=== PATIENT | female | born 1955 | race Caucasian/White ===

== ENCOUNTER 2024-05-07 21:23 | Emergency (ER) | payer MEDICARE, SELFPAY ==
[2024-05-07 21:28] VITALS: BP 156/90; PULSE 91; TEMP 36.7; O2SAT 99; BMI 24.0
--- NOTE | 2024-05-07 21:58 | ED.FALL1 ---
HPI HPI - Fall General Chief Complaint: Fall Stated Complaint: fall Time Seen by Provider: 05/07/24 21:25 Source: patient Mode of arrival: walk-in Limitations: no limitations History of Present Illness HPI Narrative: 69-year-old female presents emergency room chief complaint of left fall. Patient was dancing and fell on the outstretched wrist. Soft tissue swelling is noted. She states she injured week but did not have an x-ray she saw her primary care physician was feeling better. She states she reinjured it today when she fell. She is crying. Patient is intoxicated states she drank a lot of alcohol today. Patient has no other injury or trauma denies any elbow shoulder or forearm pain. Good capillary refill distal of the extremity. No previous fracture to this extremity. Related Data Home Medications ?Medication ?Instructions ?Recorded ?Confirmed calcium 500 mg tablet 500 mg PO BID 05/07/24 05/07/24 cholecalciferol (vitamin D3) 75 2,000 unit PO DAILY 05/07/24 05/07/24 mcg (3,000 unit) tablet fluoxetine 40 mg capsule (Prozac) 60 mg PO DAILY 05/07/24 05/07/24 ibandronate 150 mg tablet mg PO .monthly 05/07/24 lorazepam 0.5 mg tablet (Ativan) 0.5 mg PO Q8H PRN anxiety 05/07/24 05/07/24 losartan 50 mg tablet (Cozaar) 50 mg PO DAILY 05/07/24 05/07/24 pantoprazole 40 mg tablet,delayed 40 mg PO DAILY 05/07/24 05/07/24 release Allergies Allergy/AdvReac Type Severity Reaction Status Date / Time No Known Drug Allergies Allergy Verified 05/07/24 21:31 Opioid HPI Opioid Management Most Recent Pain and Opioid Data: No Data to Display Review of Systems ROS Narrative All Systems are negative except as noted/marked. PFSH PFSH Social History Little interest or pleasure in doing things: not at all Feeling down, depressed, or hopeless: not at all Exam Narrative Exam Narrative: Nurses note and vital signs reviewed and patient is not hypoxic. General: The patient appears well and in no apparent distress. Patient is resting comfortably on cart. Skin: Warm, dry, no pallor noted. There is no rash noted. Head: Normocephalic, atraumatic Eye: Normal conjunctiva, no drainage, EOMI. PERRL Ears, Nose, Mouth, and Throat: oral mucosa is moist. Nares patent. Mouth without vesicles. Ear canals patent. Tm's without Erythema Cardiovascular: Regular Rate and Rhythm Musculoskeletal: Left wrist, neurovascular intact with good capillary fill distally, no elbow or shoulder or forearm tenderness, remainder of extremities are unremarkable no acute injuries noted on exam other than listed Neurological: A&O x4, normal speech Psychiatric: Cooperative, intoxicated Constitutional Vital Signs, click to edit/add: Last Vital Signs Temp 98.1 F 05/07/24 21:28 Pulse 91 H 05/07/24 21:28 Resp 20 05/07/24 21:28 BP 156/90 H 05/07/24 21:28 Pulse Ox 99 05/07/24 21:28 O2 Del Method Room Air 05/07/24 21:28 Course Vital Signs Vital signs: Vital Signs Temperature 98.1 F 05/07/24 21:28 Pulse Rate 91 H 05/07/24 21:28 Respiratory Rate 20 05/07/24 21:28 Blood Pressure 156/90 H 05/07/24 21:28 Pulse Oximetry 99 05/07/24 21:28 Oxygen Delivery Method Room Air 05/07/24 21:28 Temperature 98.1 F 05/07/24 21:28 Pulse Rate 91 H 05/07/24 21:28 Respiratory Rate 20 05/07/24 21:28 Blood Pressure 156/90 H 05/07/24 21:28 Pulse Oximetry 99 05/07/24 21:28 Oxygen Delivery Method Room Air 05/07/24 21:28 MDM - Fall MDM Narrative Medical decision making narrative: 69-year-old female presents emergency room chief complaint of left fall. Patient was dancing and fell on the outstretched wrist. Soft tissue swelling is noted. She states she injured week but did not have an x-ray she saw her primary care physician was feeling better. She states she reinjured it today when she fell. She is crying. Patient is intoxicated states she drank a lot of alcohol today. Patient has no other injury or trauma denies any elbow shoulder or forearm pain. Good capillary refill distal of the extremity. No previous fracture to this extremity. Here with chief complaint of left wrist injury x-ray shows a distal ulna fracture. Patient was placed in a volar splint by myself extremity neurovascular intact before and after application. Sling was then applied. Patient been drinking alcohol states she had a lot to drink tonight. She denies passing out or any head or neck pain at this time. She will be discharged home prescription [place] medicate here with Tylenol. She will follow-up with Dr. singh office at 1130 on Thursday. Daughter at bedside agrees with plan of care Differential Diagnosis Differential diagnosis: Likely fracture of wrist Medical Records Attestation: I reviewed the patient's medical records. Discharge Plan Discharge Chief Complaint: Fall Clinical Impression: Fracture of wrist Patient Disposition: Home, Self-Care Time of Disposition Decision: 22:03 Condition: Good Prescriptions / Home Meds: No Action fluoxetine [Prozac] 40 mg capsule 60 mg PO DAILY lorazepam [Ativan] 0.5 mg tablet 0.5 mg PO Q8H PRN (Reason: anxiety) losartan [Cozaar] 50 mg tablet 50 mg PO DAILY pantoprazole 40 mg tablet,delayed release (DR/EC) 40 mg PO DAILY ibandronate 150 mg tablet PO .monthly calcium 500 mg tablet 500 mg PO BID cholecalciferol (vitamin D3) 75 mcg (3,000 unit) tablet 2,000 unit PO DAILY Print Language: Uzbek Instructions: Wrist Fracture in Adults (ED) Referrals: Physician,Non-Staff, [Primary Care Provider] - 1 week Mitchell Singh MD [Physician] - 05/09/24 11:30 am
[2024-05-07] MEDS: ACETAMINOPHEN 500 MG TABLET 1000 MG PO (22:12)
[2024-05-07] MEDS: ONDANSETRON 4 MG RAPDIS TABLET SL (22:12)
== END 2024-05-07 22:54 | disposition home or self-care (01) ==
PROVIDERS: Emergency Provider Student in an Organized Health Care Education/Training Program; Family Provider Internal Medicine
DX: S52.612A Displaced fracture of left ulna styloid process, initial encounter for closed fracture (principal); W18.39XA Other fall on same level, initial encounter; Y93.41 Activity, dancing; F10.129 Alcohol abuse with intoxication, unspecified
CPT/HCPCS: 29125; 73110; 99283; Q0162

== ENCOUNTER 2024-05-16 12:56 | Outpatient (OUT) | payer MEDICARE, SELFPAY ==
--- NOTE | 2024-05-16 | XR_ITS ---
The [address] [address] Patient Name: ROBERT DEGROOT MRN: [id number] date: 1955 Sex: F Assigned Patient Location: Current Patient Location: Accession/Order Number: [id number] Exam Date: 05/16/2024 16:52 Report Date: 05/16/2024 16:53 At the request of: PETER DEL RIO MD Procedure: XR wrist LT min 3V LEFT WRIST - 3 views CLINICAL HISTORY: Left wrist pain after fall. COMPARISON: Left wrist 05/07/2024 FINDINGS: Cast material is in place limiting bony detail. Styloid process fracture of the ulna is grossly unchanged alignment and healing. Distal radius appears intact. Carpus appears grossly unchanged. XR/XR wrist LT min 3V IMPRESSION: NO SIGNIFICANT CHANGE IN WRIST FINDINGS COMPARED TO THE PRIOR STUDY. Impression dictated by: Caio Graves Jr., DSolisOSolis05/16/2024 4:53 PM Dictation Location: [place] [address] Electronically authenticated by: [id number] Y Date: 05/16/2024 16:53
== END 2024-05-16 12:57 | disposition home or self-care (01) ==
LOC: EC 12:57
PROVIDERS: Family Provider Internal Medicine; Visit Provider Orthopaedic Surgery
DX: S52.592D Other fractures of lower end of left radius, subsequent encounter for closed fracture with routine healing (principal); S52.615D Nondisplaced fracture of left ulna styloid process, subsequent encounter for closed fracture with routine healing
CPT/HCPCS: 73110

== ENCOUNTER 2024-05-23 09:30 | Outpatient (OUT) | payer MEDICARE, SELFPAY ==
--- NOTE | 2024-05-23 | XR_ITS ---
The [address] [address] Patient Name: ROBERT DEGROOT MRN: [id number] date: 1955 Sex: F Assigned Patient Location: Current Patient Location: Accession/Order Number: [id number] Exam Date: 05/23/2024 13:06 Report Date: 05/23/2024 13:11 At the request of: PETER DEL RIO MD Procedure: XR wrist LT min 3V LEFT WRIST - 3 views CLINICAL DATA: Wrist pain. Follow-up ulnar styloid fractures. COMPARISON: 05/16/2024 AP, lateral and oblique views were obtained in a cast that obscures fine bone detail. A mildly displaced fracture at the ulnar styloid is again visualized, similar in position. On the lateral view, there is suggestion of possible developing callus formation dorsally. It is uncertain if this is related to the ulnar styloid or could be a healing fracture at the distal radius given the cast artifact. The appearance is however unchanged. No dislocation is noted. There is mild soft tissue swelling. XR/XR wrist LT min 3V IMPRESSION: STABLE APPEARANCE OF THE WRIST. Impression dictated by: Jacqueline Diego M.D.05/23/2024 1:11 PM Dictation Location: [place] [address] Electronically authenticated by: [id number] Y Date: 05/23/2024 13:11
--- OUTSIDE RECORDS SUMMARY | 2024-05-23 09:52 | XMS_ITS | CCD ---
Author Organization [facility] Care Team Providers Care Sheather Name Role Phone Rae Wilson Unavailable Unavailable *SELF, REFERRED Unavailable Unavailable Addie Bruner Unavailable UnavailRae Navarro Unavailable Unavailable Addie Bruner Unavailable UnavailAddie Piedra DO Primary Care Provider Addie Bruner DO Primary Care Provider [phone] ADDIE BRUNER Attending Unavailable ADDIE BRUNER Attending Unavailable ADDIE BRUNER Referring Unavailable LAUREN PAZ Attending Unavailable DEBBY CARREON Attending Unavailable LAUREN PAZ Attending Unavailable LAUREN PAZ Attending Unavailable MILADIS PAZ Referring Unavailable MILADIS PAZ Attending Unavailable MILADIS PAZ Referring Unavailable ADDIE BRUNER Referring Unavailable ADDIE BRUNER Attending Unavailable ADDIE BRUNER Referring Unavailable WILBERTO QUINTERO Attending Unavailable Allergies Allergy Classification Reported Allergen(s) Allergy Type Date of Onset Reaction(s) Facility (11 sources) Ibandronate Drug Allergy 3 GI intolerance [facility] Healthcare (11 sources) Other Propensity to adverse reactions 7 Itching [facility] Medications Current Medications Medication Drug Class(es) Dates Sig (Normalized) Sig (Original) FLUoxetine 20 mg oral capsule (20 sources) Serotonin Reuptake Inhibitor Start: 08-21-2023 take 1 capsule by mouth once daily FLUoxetine (PROzac) 20 MG capsule Indications: Major depressive disorder, recurrent episode with anxious distress (CMS/HCC) TAKE 1 CAPSULE BY MOUTH DAILY 90 capsule 3 08/21/2023 Active Start: 08-21-2023 take 1 capsule by [facility] once daily FLUoxetine (PROzac) 40 MG capsule Indications: Major depressive disorder, recurrent episode with anxious distress (CMS/HCC) TAKE 1 CAPSULE BY MOUTH DAILY WITH 20MG CAPSULE 90 capsule 3 08/21/2023 Active Start: 11-06-2022 take 1 capsule by mo uth once daily FLUoxetine (PROzac) 40 MG capsule Indications: Major depressive disorder, recurrent episode with anxious distress (CMS/HCC) TAKE ONE CAPSULE BY MOUTH DAILY WITH 20MG CAPSULE TO EQUAL 60MG DIRECTED 90 capsule 3 11/06/2022 Active Start: 02-17-2020 take 1 capsule by mo uth once daily FLUoxetine (PROzac) 20 MG capsule Take 1 capsule by mouth 1 (one) time each day at the same time. 0 02/17/2020 Active ibuprofen 800 mg oral tablet (11 sources) Nonsteroidal Anti-inflammatory Drug Start: 01-21-2024 take 1 tablet by mouth three times daily as needed for pain ibuprofen 800 MG tablet Indications: Other chronic pain Take 1 tablet (800 mg) by mouth 3 (three) times a day as needed for moderate pain 270 tablet 3 01/21/2024 Active Start: 08-04-2023 take 1 tablet by corby th three times daily as needed ibuprofen 800 MG tablet Indications: Other chronic pain TAKE 1 TABLET BY MOUTH 3 TIMES DAILY NEEDED 270 tablet 3 08/04/2023 Active take 1 tablet by corby th three times daily as needed for pain ibuprofen 800 MG tablet Take 1 tablet by mouth 3 (three) times a day as needed for mild pain. 0 Active LORazepam 0.5 mg oral tablet (16 sources) Benzodiazepine Start: 02-25-2024 End: 04-08-2024 take 1 tablet by mouth three times daily as needed LORazepam (Ativan) 0.5 MG tablet Indications: Anxiety TAKE ONE TABLET BY MOUTH THREE TIMES A DAY NEEDED 90 tablet 04/08/2024 Active Start: 12-04-2023 take 1 tablet by corby th three times daily as needed LORazepam (Ativan) 0.5 MG tablet Indications: Anxiety TAKE ONE TABLET BY MOUTH THREE TIMES A DAY NEEDED 90 tablet 12/04/2023 Active Start: 10-21-2023 End: 02-25-2024 take 1 tablet by mouth three times daily as needed LORazepam (Ativan) 0.5 MG tablet Indications: Anxiety TAKE ONE TABLET BY MOUTH THREE TIMES A DAY NEEDED 90 tablet 01/19/2024 02/25/2024 Discontinued (Reorder) Start: 04-28-2023 take 1 tablet by corby th three times daily as needed LORazepam (Ativan) 0.5 MG tablet Indications: Anxiety TAKE ONE TABLET BY MOUTH THREE TIMES A DAY NEEDED 90 tablet 0 04/28/2023 Active Start: 03-18-2023 End: 04-28-2023 take 1 tablet by mouth three times daily as needed LORazepam (Ativan) 0.5 MG tablet Indications: Anxiety TAKE ONE TABLET BY MOUTH THREE TIMES A DAY NEEDED 90 tablet 0 03/18/2023 04/28/2023 Discontinued (Reorder) losartan potassium 50 mg oral tablet (10 sources) Angiotensin 2 Receptor [facility] Start: 01-21-2024 take 1 tablet by mouth once daily in the morning losartan (Cozaar) 50 MG tablet Indications: Primary hypertension (CMS/HCC) Take 1 tablet (50 mg) by mouth Daily in the Morning 90 tablet 3 01/21/2024 Active Start: 09-21-2023 take 1 tablet by corby th once daily in the morning losartan (Cozaar) 50 MG tablet Indications: Primary hypertension (CMS/HCC) Take 1 tablet (50 mg) by mouth Daily in the Morning 90 tablet 1 09/21/2023 Active pantoprazole 40 mg delayed release oral tablet (13 sources) Proton Pump Inhibitor Start: 10-21-2023 End: 03-31-2024 take 1 tablet by mouth once daily pantoprazole (ProtoNix) 40 MG EC tablet Indications: Gastroesophageal reflux disease without esophagitis Take 1 tablet (40 mg) by mouth 1 (one) time each day at the same time 90 tablet 1 03/31/2024 Active take 1 tablet by mouth once reji y pantoprazole (ProtoNix) 40 MG EC tablet Take 1 tablet by mouth 1 (one) time each day at the same time. 0 Active Problems Active Problems Problem Classification Problem Date Documented Da te Episodic/Chronic Administrative/social admission (20 sources) Patient encounter status; Translations: [Other specified counseling] Onset: 3 Resolved: 4 12-15-2022 Episodic Anxiety disorders (17 sources) Anxiety; Translations: [Anxiety disorder, unspecified] Onset: 4 04-28-2023 Chronic Disorders of lipid metabolism (12 sources) Raised low density lipoprotein cholesterol; Translations: [Pure hypercholesterolemia, unspecified] Onset: 4 10-21-2023 Chronic Esophageal disorders (20 sources) Gastroesophageal reflux disease without esophagitis; Translations: [Gastro-esophageal reflux disease without esophagitis] Onset: 3 Resolved: 3 12-15-2022 Chronic Essential hypertension (12 sources) Essential hypertension; Translations: [Essential (primary) hypertension] Onset: 4 06-16-2023 Chronic Miscellaneous mental health disorders (2 sources) Primary insomnia; Translations: [Primary insomnia] 04-27-2024 Chronic Mood disorders (13 sources) Recurrent major depression; Translations: [Major depressive disorder, recurrent, unspecified] Onset: 3 07-28-2022 Chronic Other bone disease and musculoskeletal deformities (4 sources) Osteopenia; Translations: [Other specified disorders of bone density and structure, multiple sites] Onset: 5 04-27-2024 Episodic Other ear and sense organ disorders (2 sources) Otalgia, left ear; Translations: [Otalgia, unspecified] 03-31-2024 Episodic Other gastrointestinal disorders (11 sources) Irritable bowel syndrome; Translations: [Irritable bowel syndrome without diarrhea] Onset: 3 07-28-2022 Chronic Other gastrointestinal disorders (2 sources) Irritable bowel syndrome characterized by constipation; Translations: [Irritable bowel syndrome with constipation] 04-27-2024 Chronic Other nervous system disorders (11 sources) Chronic pain; Translations: [Other chronic pain] Onset: 3 08-08-2022 Chronic Other non-traumatic joint disorders (3 sources) Pain in unspecified ankle and joints of unspecified foot; Translations: [Pain in unspecified ankle] Onset: 8 Episodic Other non-traumatic joint disorders (1 source) Pain in unspecified knee; Translations: [Pain in unspecified knee] Onset: 8 Episodic Other upper respiratory disease (11 sources) Seasonal allergy; Translations: [Other seasonal allergic rhinitis] Onset: 3 08-08-2022 Chronic Superficial injury; contusion (2 sources) Contusion of scalp; Translations: [Contusion of scalp, initial encounter] 03-31-2024 Episodic Past or Other Problems Problem Classification Problem Date Documented Da te Episodic/Chronic Osteoporosis (11 sources) Osteoporosis; Translations: [Age-related osteoporosis without current pathological fracture] Onset: 07-28-2022 Resolved: 10-21-2023 07-28-2022 Chronic Other bone disease and musculoskeletal deformities (10 sources) Acquired absence of other right toe(s); Translations: [Other toe(s) amputation status] Onset: 07-28-2022 Resolved: 07-28-2022 07-28-2022 Episodic Residual codes; unclassified (11 sources) Insomnia; Translations: [Insomnia, unspecified] Onset: 07-28-2022 07-28-2022 Episodic Results Test Name Value Interpretation Reference Range Facility CBC W Auto Differential pane l (Bld)on 04-26-2024 Basophils (Bld) [#/Vol] 0 10*3/uL [facility] Basophils/100 WBC (Bld) 0 % Not Estab. [facility] Eosinophils (Bld) [#/Vol] 0.1 10*3/uL [facility] Eosinophils/100 WBC (Bld) 2 % Not Estab. [facility] Erythrocyte distribution width (RBC) [Ratio] 12.3 % 11.7 - 15.4 % [facility] Hematocrit (Bld) [Volume fraction] 40.2 % 34.0 - 46.6 % [facility] Hemoglobin (Bld) [Mass/Vol] 13 g/dL 11.1 - 15.9 g/dL [facility] Immature granulocytes (Bld) [#/Vol] 0 10*3/uL [facility] Immature granulocytes/100 WBC (Bld) 0 % Not Estab. [facility] Lymphocytes (Bld) [#/Vol] 1.7 10*3/uL [facility] Lymphocytes/100 WBC (Bld) 32 % Not Estab. [facility] MCH (RBC) [Entitic mass] 30.3 pg 26.6 - 33.0 pg [facility] MCHC (RBC) [Mass/Vol] 32.3 g/dL 31.5 - 35.7 g/dL [facility] MCV (RBC) [Entitic vol] 94 fL 79 - 97 fL [facility] Monocytes (Bld) [#/Vol] 0.5 10*3/uL [facility] Monocytes/100 WBC (Bld) 10 % Not Estab. [facility] Neutrophils (Bld) [#/Vol] 2.9 10*3/uL [facility] Neutrophils/100 WBC (Bld) 56 % Not Estab. [facility] Platelets (Bld) [#/Vol] 307 10*3/uL [facility] RBC (Bld) [#/Vol] 4.29 10*6/uL [facility] WBC (Bld) [#/Vol] 5.2 10*3/uL [facility] Comprehensive metabolic pane herson 04-26-2024 Albumin [Mass/Vol] 4.3 g/dL 3.9 - 4.9 g/dL [facility] ALP [Catalytic activity/Vol] 48 U/L [facility] ALT [Catalytic activity/Vol] 17 U/L [facility] AST [Catalytic activity/Vol] 19 U/L [facility] Bilirubin [Mass/Vol] 0.5 mg/dL 0.0 - 1.2 mg/dL [facility] Calcium [Mass/Vol] 9.3 mg/dL 8.7 - 10.3 mg/dL [facility] Chloride [Moles/Vol] 106 mmol/L 96 - 106 mmol/L [facility] CO2 [Moles/Vol] 24 mmol/L 20 - 29 mmol/L [facility] Creatinine [Mass/Vol] 0.83 mg/dL 0.57 - 1.00 mg/dL [facility] GFR/1.73 sq M.predicted among non-blacks MDRD (S/P/Bld) [Vol rate/Area] 76 mL/min/{1.73_m2} 59 - PINF mL/min/1.73 [facility] Globulin (S) [Mass/Vol] 2.5 g/dL 1.5 - 4.5 g/dL [facility] Glucose [Mass/Vol] 88 mg/dL 70 - 99 mg/dL [facility] Potassium [Moles/Vol] 4.2 mmol/L 3.5 - 5.2 mmol/L [facility] Protein [Mass/Vol] 6.8 g/dL 6.0 - 8.5 g/dL [facility] Sodium [Moles/Vol] 143 mmol/L 134 - 144 mmol/L [facility] Urea nitrogen [Mass/Vol] 16 mg/dL 8 - 27 mg/dL [facility] Urea nitrogen/Creatini ne [Mass ratio] 19 mg/mg 12 - 28 [facility] Lipid 1996 panelon Cholesterol [Mass/Vol] 209 mg/dL High 100 - 199 mg/dL [facility] Cholesterol in HDL [Mass/Vol] 83 mg/dL 39 - PINF mg/dL [facility] Cholesterol in LDL [Mass/Vol] 110 mg/dL High 0 - 99 mg/dL [facility] Cholesterol in VLDL [Mass/Vol] 16 mg/dL 5 - 40 mg/dL [facility] Interpretation and review of laboratory results Abnormal [facility] Triglyceride [Mass/Vol] 89 mg/dL 0 - 149 mg/dL [facility] No Panel Informationon 04-26 Performed at: 01 - [address] [id number] [employer]cher: Daniel Denise PhD, Phone: [phone] [facility] Specimen Status Reporton Clindamycin Disk diffusion (KB) [[facility]] Comment [facility] Comment on above: Ambig Abbrev CMP14 D efault Ambdb Abbrev CMP14 Default A hand-written panel/profile was received from your office. In accordance with the [employer] Ambiguous Test Code Policy dated September 2002, we have completed your order by using the closest currently or formerly recognized AMA panel. We have assigned Comprehensive Metabolic Panel (14), Test Code #736008 to this request. If this is not the testing you wished to receive on this specimen, please contact the [employer] Client Inquiry/Technical Services Department to clarify the test order. We appreciate your business. Ambig Abbrev LP Default Ambig Abbrev LP Default A hand-written panel/profile was received from your office. In accordance with the [employer] Ambiguous Test Code Policy dated September 2002, we have completed your order by using the closest currently or formerly recognized AMA panel. We have assigned Lipid Panel, Test Code #788516 to this request. If this is not the testing you wished to receive on this specimen, please contact the [employer] Client Inquiry/Technical Services Department to clarify the test order. We appreciate your business. TSHon 04-26-2024 TSH Qn 1.54 m[IU]/L [facility] BI MAMMOGRAM SCREENING TOMOS YNTHESIS BILATERALon 09-02-2023 BI MAMMOGRAM SCREENING TOMOSYNTHESIS BILATERAL This is a summary report. The complete report is available in the patient's medical record. If you cannot access the medical record, please contact the sending organization for a detailed fax or copy. EXAMINATION: BI MAMMOGRAM SCREENING TOMOSYNTHESIS BILATERAL CLINICAL HISTORY:Screening COMPARISON: May 06, 2022. RESULT: Density: Scattered fibroglandular density [2] Overall appearance is stable. Typically benign calcifications. There is no suspicious mass, asymmetry, architectural distortion, or calcification IMPRESSION: BIRADS 2 - Benign Follow-up: Routine Screening Mamm Board Certified Radiologists. Accredited by the ACR and FDA. MAMMOGRAPHY IS VERY IMPORTANT TO YOUR HEALTH. THE [employer] GUIDELINES RECOMMEND THAT WOMEN 40 YEARS OF AGE AND OLDER SHOULD HAVE A MAMMOGRAM EVERY YEAR. A REMINDER LETTER WILL BE SENT AT THE APPROPRIATE TIME. THIS FACILITY UTILIZES A REMINDER SYSTEM TO ENSURE ALL PATIENTS RECEIVE REMINDER NOTIFICATIONS AT THE APPROPRIATE TIME BASED ON THE RECOMMENDATIONS OF THIS EXAM. THIS INCLUDES REMINDERS FOR ROUTINE SCREENING MAMMOGRAMS, DIAGNOSTIC MAMMOGRAMS IN WHICH THE PATIENT IS ASKED TO RETURN FOR ADDITIONAL VIEWS, OR OTHER BREAST IMAGING INTERVENTIONS WHEN APPROPRIATE. THE PATIENT WILL BE PLACED IN THE APPROPRIATE REMINDER SYSTEM INCLUDING A REMINDER AT THE APPROPRIATE TIME FOR ANY PENDING ADDITIONAL VIEWS. TRANSCRIBED BY: ELECTRONICALLY SIGNED BY: Caio Waters MD Normal Not Available DEXA BONE DENSITYon 06-16-19 24 DEXA BONE DENSITY Correlation is made with the previous DEXA examination of May 06, 2022. FINDINGS: Dual Femur bone density obtained with a [employer] whole body system: Region BMD Young-Adult Age-Matched Total (g/cm2) (%) T-Score (%) Z-Score Mean 0.599 71 -2.3 92 -0.5 IMPRESSION: Impression: The mean BMD and corresponding T-score indicated above indicate Low Bone Mass (Osteopenia, borderline osteoporosis) and places the patient at a mild to moderate increased risk for fracture. There may be a future risk of developing osteoporosis. Compared to the prior exam, -2.6% change is seen. FINDINGS: AP Spine bone density obtained with a [employer] whole body system: Region BMD Young-Adult Age-Matched Total (g/cm2) (%) T-Score (%) Z-Score L1-L4 0.801 76 -2.2 98 -0.2 Impression: The mean BMD and corresponding T-score indicated above indicate Low Bone Mass (Osteopenia) and places the patient at a mild to moderate increased risk for fracture. There may be a future risk of developing osteoporosis. Compared to the prior exam, +0.2% change is seen. Comment: The T-score is the primary focus of the interpretation of a patient?s bone mineral density measurement. The T-score is the number of standard deviations an individual is above or below the mean value for a young female having normal bone mass. The WHO defines osteoporosis based on the T-score value? +1.0 to ?0.9: Normal bone mass -1.0 to -2.5: Osteopenia and thus may be at future risk of fracture -2.6 to ?5: Osteoporosis and ?at significantly increased risk of fracture? TRANSCRIBED BY: ELECTRONICALLY SIGNED BY: Caio Waters MD Normal Not Available SCREENING MAMMOGRAM W/EUSEBIO, BILATERAL*on 05-06-2022 SCREENING MAMMOGRAM W/EUSEBIO, BILATERAL* CLINICAL HISTORY: Screening Mammogram COMPARISON: 06/20/2020, 06/09/2018, and 05/28/2016. TECHNIQUE: 2D and 3D Tomosynthesis of the right and left breasts was performed. FINDINGS: DENSITY: Heterogeneously dense. There are no suspicious masses, areas of suspicious microcalcifications or areas of architectural distortion identified. No evidence of skin thickening. IMPRESSION: BIRADS 1 : NEGATIVE, NORMAL INTERVAL FOLLOW UP. Board certified radiologist. Accredited by the ACR and FDA. MAMMOGRAPHY IS VERY IMPORTANT TO YOUR HEALTH. CURRENT [employer] AND [employer]WORK GUIDELINES RECOMMENDS ANNUAL MAMMOGRAPHY BEGINNING AT AGE 40. THIS FACILITY USUALLY USES A REMINDER SYSTEM TO ENSURE ALL POSITIONS RECEIVED REMINDER NOTIFICATIONS AT THE TIME BASED ON THE RECOMMENDATIONS OF THIS EXAM. Report reported and signed by Mitchell Walton on 05/07/2022 1350 Normal [facility] COVID-19 [facility] 10-28-20 21 SARS-CoV-2 (COVID-19) RNA JARET+probe Ql (Unsp spec) Detected Critically abnormal Not Detected [facility] Comment on above: Order Comment: Reaso n for Exam Exposure to COVID-19 virus Healthcare Worker?: N Result Comment: Mackenzie ents who have a positive COVID-19 test result may now have treatment options. Treatment options are available for patients with mild to moderate symptoms and for hospitalized patients. Visit our website at [email or web address] for resources and information. This nucleic acid amplification test was developed and its performance characteristics determined by [employer]. Nucleic acid amplification tests include RT- PCR and TMA. This test has not been FDA cleared or approved. This test has been authorized by FDA under an Emergency Use Authorization (EUA). This test is only authorized for the duration of time the declaration that circumstances exist justifying the authorization of the emergency use of in vitro diagnostic tests for detection of SARS-CoV-2 virus and/or diagnosis of COVID-19 infection under section 564(b)(1) of the Act, 21 U.S.C. 360bbb-3(b) (1), unless the authorization is terminated or revoked sooner. When diagnostic testing is negative, the possibility of a false negative result should be considered in the context of a patient's recent exposures and the presence of clinical signs and symptoms consistent with COVID-19. An individual without symptoms of COVID-19 and who is not shedding SARS-CoV-2 virus would expect to have a negative (not detected) result in this assay. PERFORMED BY: [place] [address] PATHOLOGIST [employer] TERRIE TROTTER M.D. Performed By: #### C BC, PTT, CMP, PT, LIPASE, TROP, BNP #### [address] STR cardiac stress/regularon 07-11-2020 STR cardiac stress/regular [facility] Main [place] [address] [place] [address] Cardiac Stress Test Signed Patient: Zoe Degroot MR#: [id number] : 1955 Acct:[id number] Age/Sex: 65 / F ADM Date: 07/10/20 Loc: Room: Type: [facility] Attending Dr: Lokesh Chang MD Ordering Provider: Lokesh Chang MD Date of Service: 07/10/20 STR/STR cardiac stress/regular: chest pain Copies to: Lokesh Chang MD REASON FOR STUDY: Chest pain. PROCEDURE: The patient underwent graded exercise stress test with the Singh protocol. The patient was able to exercise for 8 minutes 50 seconds, achieving workload of 10.1 METS. Maximum heart rate was 133 beats per minute, corresponding to 86% of maximum predicted heart rate. Maximum blood pressure was 168/70. No chest pain was reported. Blood pressure and heart response to exercise was physiologic. Baseline ECG showed normal sinus rhythm with no ST-T changes. Following exercise, no diagnostic changes or arrhythmia were seen. CONCLUSION: 1. Graded exercise stress test without diagnostic ST-T changes for ischemia. 2. No provoked chest pain or arrhythmia. 3. Appropriate hemodynamic response to exercise. 4. Good exercise tolerance. 5. Normal heart recovery phase. 6. This is a clinically negative study. Transcribed By: LISA 07/11/20 1116 Dictated By: Lokesh Chang MD 07/11/20 1109 Signed By: 07/12/[address] [facility] Basic Metabolic Panelon 04-0 Calcium [Mass/Vol] 8.4 mg/dL Normal 8.2-10.2 [facility] Comment on above: Performed By: #### C BC, PTT, CMP, PT, LIPASE, TROP, BNP #### [facility] [address] Chloride [Moles/Vol] 104 mmol/L Normal 95-114 [facility] Comment on above: Performed By: #### C BC, PTT, CMP, PT, LIPASE, TROP, BNP #### [facility] [address] CO2 [Moles/Vol] 24.6 mmol/L Normal 22.0-30.0 [facility] Comment on above: Performed By: #### C BC, PTT, CMP, PT, LIPASE, TROP, BNP #### [facility] [address] [place] [address] [place] Creatinine [Mass/Vol] 0.61 mg/dL Normal 0.44-1.03 [facility] Comment on above: Performed By: #### C BC, PTT, CMP, PT, LIPASE, TROP, BNP #### [facility] [address] [place] [address] [place] Creatinine Clr Calc Pharmacy 64.63 [facility] Comment on above: Result Comment: PERF ORMED BY: [place] [address] PATHOLOGIST [employer] TERRIE TROTTER M.D. Performed By: #### C BC, PTT, CMP, PT, LIPASE, TROP, BNP #### [address] Estimated GFR ( Odilia > 60 Normal [facility] Comment on above: Result Comment: GFR estimated reference range: According to KDOQI guidelines, <60 ml/min/1.73m2 is sufficient to diagnose a patient with chronic kidney disease. Performed By: #### C BC, PTT, CMP, PT, LIPASE, TROP, BNP #### [address] Estimated GFR (Non- Am > 60 Normal [facility] Comment on above: Performed By: #### C BC, PTT, CMP, PT, LIPASE, TROP, BNP #### [address] Glucose [Mass/Vol] 174 mg/dL High 70-100 [facility] Comment on above: Result Comment: [place] Glucose Reference Range is dependent on time and content of last meal. Glucose of more than 200 mg/dL in a nonstressed, ambulatory subject supports the diagnosis of Diabetes Mellitus. ADA recommended reference range Performed By: #### C BC, PTT, CMP, PT, LIPASE, TROP, BNP #### [address] Potassium [Moles/Vol] 3.3 mmol/L Low 3.5-5.1 [facility] Comment on above: Performed By: #### C BC, PTT, CMP, PT, LIPASE, TROP, BNP #### [address] Sodium [Moles/Vol] 137 mmol/L Normal 136-146 [facility] Comment on above: Performed By: #### C BC, PTT, CMP, PT, LIPASE, TROP, BNP #### [address] Urea nitrogen [Mass/Vol] 6 mg/dL Low 9-23 [facility] Comment on above: Performed By: #### C BC, PTT, CMP, PT, LIPASE, TROP, BNP #### [address] Complete Blood Count Auto Di ffon 06-17-2020 Basophils (Bld) [#/Vol] 0.0 10*3/uL Normal 0.0-0.2 [facility] Comment on above: Result Comment: PERF ORMED BY: [place] [address] PATHOLOGIST [employer] TERRIE TROTTER M.D. Performed By: #### C BC, PTT, CMP, PT, LIPASE, TROP, BNP #### [address] Basophils/100 WBC (Bld) 0.4 % Normal . [facility] Comment on above: Performed By: #### C BC, PTT, CMP, PT, LIPASE, TROP, BNP #### [address] Eosinophils (Bld) [#/Vol] 0.1 10*3/uL Normal 0.0-0.45 [facility] Comment on above: Performed By: #### C BC, PTT, CMP, PT, LIPASE, TROP, BNP #### [address] Eosinophils/100 WBC (Bld) 1.1 % Normal . [facility] Comment on above: Performed By: #### C BC, PTT, CMP, PT, LIPASE, TROP, BNP #### [address] Erythrocyte distribution width (RBC) [Ratio] 13.2 % Normal 11.9-15.3 [facility] Comment on above: Performed By: #### C BC, PTT, CMP, PT, LIPASE, TROP, BNP #### [address] Hematocrit (Bld) [Volume fraction] 38.4 % Normal 34.0-46.4 [facility] Comment on above: Performed By: #### C BC, PTT, CMP, PT, LIPASE, TROP, BNP #### [address] Hemoglobin (Bld) [Mass/Vol] 13.0 g/dL Normal 11.8-15.4 [facility] Comment on above: Performed By: #### C BC, PTT, CMP, PT, LIPASE, TROP, BNP #### [address] Lymphocytes (Bld) [#/Vol] 1.0 10*3/uL Normal 1.00-4.8 [facility] Comment on above: Performed By: #### C BC, PTT, CMP, PT, LIPASE, TROP, BNP #### [address] Lymphocytes/100 WBC (Bld) 13.5 % Normal . [facility] Comment on above: Performed By: #### C BC, PTT, CMP, PT, LIPASE, TROP, BNP #### [address] MCH (RBC) [Entitic mass] 31.1 pg Normal 24.7-34.3 [facility] Comment on above: Performed By: #### C BC, PTT, CMP, PT, LIPASE, TROP, BNP #### [address] MCV (RBC) [Entitic vol] 92.2 fL Normal 80-100 [facility] Comment on above: Performed By: #### C BC, PTT, CMP, PT, LIPASE, TROP, BNP #### [address] Mean Corpuscular HGB Conc 33.7 g/dL Normal 32.0-35.0 [facility] Comment on above: Performed By: #### C BC, PTT, CMP, PT, LIPASE, TROP, BNP #### [address] Monocytes (Bld) [#/Vol] 0.5 10*3/uL Normal 0.0-0.8 [facility] Comment on above: Performed By: #### C BC, PTT, CMP, PT, LIPASE, TROP, BNP #### [address] Monocytes/100 WBC (Bld) 7.2 % Normal . [facility] Comment on above: Performed By: #### C BC, PTT, CMP, PT, LIPASE, TROP, BNP #### [address] Neutrophils (Bld) [#/Vol] 5.9 10*3/uL Normal 1.8-7.7 [facility] Comment on above: Performed By: #### C BC, PTT, CMP, PT, LIPASE, TROP, BNP #### [address] Neutrophils/100 WBC (Bld) 77.8 % Normal . [facility] Comment on above: Performed By: #### C BC, PTT, CMP, PT, LIPASE, TROP, BNP #### [address] Nucleated RBC/100 WBC (Bld) [Ratio] 0.2 % Normal 0-0.5 [facility] Comment on above: Performed By: #### C BC, PTT, CMP, PT, LIPASE, TROP, BNP #### [address] Platelet mean volume (Bld) [Entitic vol] 7.2 fL Normal 6.3-10.7 [facility] Comment on above: Performed By: #### C BC, PTT, CMP, PT, LIPASE, TROP, BNP #### [address] Platelets (Bld) [#/Vol] 228 10*3/uL Normal 150-450 [facility] Comment on above: Performed By: #### C BC, PTT, CMP, PT, LIPASE, TROP, BNP #### [address] RBC (Bld) [#/Vol] 4.17 10*6/uL Normal 3.60-5.00 [facility] Comment on above: Performed By: #### C BC, PTT, CMP, PT, LIPASE, TROP, BNP #### [address] WBC (Bld) [#/Vol] 7.6 10*3/uL Normal 4.5-11.0 [facility] Comment on above: Performed By: #### C BC, PTT, CMP, PT, LIPASE, TROP, BNP #### [address] A1C with Estimated Average G jovann 06-16-2020 Glucose [Mass/Vol] 108 mg/dL Normal [facility] Comment on above: Result Comment: PERF ORMED BY: [place] [address] PATHOLOGIST [employer] TERRIE TROTTER M.D. Performed By: #### C BC, PTT, CMP, PT, LIPASE, TROP, BNP #### [address] HbA1c (Bld) [Mass fraction] 5.4 % Normal 4.3-5.6 [facility] Comment on above: Result Comment: Incr eased risk for diabetes: 5.7 - 6.4 diabetes: >6.4 glycemic control for adults with diabetes: <7.0 Performed By: #### C BC, PTT, CMP, PT, LIPASE, TROP, BNP #### [address] B-Type Natriuretic Peptideon 06-16-2020 Natriuretic peptide B (Bld) [Mass/Vol] 190.0 pg/mL High 5-100 [facility] Comment on above: Order Comment: Comme nt May use AM labs Result Comment: PERF ORMED BY: [place] [address] PATHOLOGIST [employer] TERRIE TROTTER M.D. Performed By: #### C BC, PTT, CMP, PT, LIPASE, TROP, BNP #### [address] Natriuretic peptide B (Bld) [Mass/Vol] 194.0 pg/mL High 5-100 [facility] Comment on above: Order Comment: IV st art, 2231. Result Comment: PERF ORMED BY: [place] [address] PATHOLOGIST [employer] TERRIE TROTTER M.D. Performed By: #### C BC, PTT, CMP, PT, LIPASE, TROP, BNP #### [address] Basic Metabolic Panelon 04-0 -2020 Calcium [Mass/Vol] 8.7 mg/dL Normal 8.2-10.2 [facility] Comment on above: Order Comment: IV st art, 2231. Performed By: #### C BC, PTT, CMP, PT, LIPASE, TROP, BNP #### [address] Chloride [Moles/Vol] 104 mmol/L Normal 95-114 [facility] Comment on above: Order Comment: IV st art, 2231. Performed By: #### C BC, PTT, CMP, PT, LIPASE, TROP, BNP #### [address] CO2 [Moles/Vol] 23.4 mmol/L Normal 22.0-30.0 [facility] Comment on above: Order Comment: IV st art, 2231. Performed By: #### C BC, PTT, CMP, PT, LIPASE, TROP, BNP #### [address] Creatinine [Mass/Vol] 0.63 mg/dL Normal 0.44-1.03 [facility] Comment on above: Order Comment: IV st art, 2231. Performed By: #### C BC, PTT, CMP, PT, LIPASE, TROP, BNP #### [address] Creatinine Clr Calc Pharmacy 59.73 Normal [facility] Comment on above: Order Comment: IV st art, [id number]. Result Comment: PERF ORMED BY: [place] [address] PATHOLOGIST [employer] TERRIE TROTTER M.D. Performed By: #### C BC, PTT, CMP, PT, LIPASE, TROP, BNP #### [address] Estimated GFR ( Odilia > 60 Normal [facility] Comment on above: Order Comment: IV st art, [id number]. Result Comment: GFR estimated reference range: According to KDOQI guidelines, <60 ml/min/1.73m2 is sufficient to diagnose a patient with chronic kidney disease. Performed By: #### C BC, PTT, CMP, PT, LIPASE, TROP, BNP #### [address] Estimated GFR (Non- Am > 60 Normal [facility] Comment on above: Order Comment: IV st art, 2231. Performed By: #### C BC, PTT, CMP, PT, LIPASE, TROP, BNP #### [address] Glucose [Mass/Vol] 131 mg/dL High 70-100 [facility] Comment on above: Order Comment: IV st art, 2231. Result Comment: [place] om Glucose Reference Range is dependent on time and content of last meal. Glucose of more than 200 mg/dL in a nonstressed, ambulatory subject supports the diagnosis of Diabetes Mellitus. ADA recommended reference range Performed By: #### C BC, PTT, CMP, PT, LIPASE, TROP, BNP #### [address] Potassium [Moles/Vol] 3.5 mmol/L Normal 3.5-5.1 [facility] Comment on above: Order Comment: IV st art, [id number]. Performed By: #### C BC, PTT, CMP, PT, LIPASE, TROP, BNP #### [address] Sodium [Moles/Vol] 136 mmol/L Normal 136-146 [facility] Comment on above: Order Comment: IV st art, [id number]. Performed By: #### C BC, PTT, CMP, PT, LIPASE, TROP, BNP #### [facility] [address] Urea nitrogen [Mass/Vol] 8 mg/dL Low 9-23 [facility] Comment on above: Order Comment: IV st art, KEJ, 2231. Performed By: #### C BC, PTT, CMP, PT, LIPASE, TROP, BNP #### [facility] [address] COVID-19 FRMCon 06-16-2020 SARS-CoV-2 (COVID-19) RNA JARET+probe Ql (Unsp spec) Negative Normal Negative [facility] Comment on above: Order Comment: Healt hcare Worker?: N Result Comment: Refe rence: Negative Testing for SARS-CoV-2 by RT-PCR This test was developed and its performance characteristics determined by [employer]) and validated at the [facility]. This test has not been FDA cleared or approved. This test has been authorized by FDA under an Emergency Use Authorization (EUA). This test has been validated in accordance with the FDA's Guidance Document (Policy for Diagnostics Testing in Laboratories Certified to Perform High Complexity Testing under CLIA prior to Emergency Use Authorization for Coronavirus Disease-2019 during the Public Health Emergency) issued on June 16, 2019. This test is only authorized for the duration of time the declaration that circumstances exist justifying the authorization of the emergency use of in vitro diagnostic tests for detection of SARS-CoV-2 virus and/or diagnosis of COVID-19 infection under section 564(b)(1) of the Act, 21 U.S.C. 360bbb-3(b)(1), unless the authorization is terminated or revoked sooner. PERFORMED BY: [place] [address] PATHOLOGIST [employer] TERRIE TROTTER M.D. Performed By: #### C BC, PTT, CMP, PT, LIPASE, TROP, BNP #### [facility] [address] angio chest PE protocolon 06-16-2020 CT angio chest PE protocol [facility] [place] [address] [place] [address] CT Scan Report Signed Patient: Zoe Degroot MR#: [id number] : 1955 Acct:[id number] Age/Sex: 65 / F ADM Date: 06/15/20 Loc: Room: [address] [place] [address] Type: ADM INOo Attending Dr: Gage Noland MD Ordering Provider: Gage Noland MD Date of Service: 06/16/20 CT/CT angio chest PE protocol: CP, r/o PE Copies to: Gage Noland MD CTA chest 06/16/2020. CLINICAL DATA: Chest pain and shortness of breath. TECHNIQUE: Intravenous contrast-enhanced CT angiography of the chest was performed. Axial, sagittal, coronal, and 3-dimensional reconstructions were created and reviewed. This CT exam was performed using one or more of the following dose reduction techniques: Automated exposure control, adjustment of the mA and/or kV according to patient size, or use of iterative reconstruction technique. COMPARISON: None. FINDINGS: The heart is normal in size. The thoracic aorta appears unremarkable. No pulmonary embolus is identified on the right or left. A pericardial cyst is suspected in the anterior mediastinum. There are findings related to a history of granulomatous disease. There is no mediastinal or hilar lymphadenopathy. The central airways appear unremarkable. There is dependent subpleural atelectasis in the lower lobes of both lungs. There are also small bilateral pleural effusions. The thoracic spine demonstrates mild degenerative changes. No chest wall abnormality is seen. The visualized upper abdomen appears unremarkable. CT/CT angio chest PE protocol IMPRESSION: 1. No visible pulmonary embolism. 2. 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 3. Dependent subpleural atelectasis in the lower lobes of both lungs. 4. Small pleural effusions. Impression dictated by: Slava De La Garza Jr., M.D.06/16/2020 4:04 PM Dictation Location: [place] [address] Transcribed By: [facility] [place] 06/16/20 1604 Dictated By: Slava De La Garza Jr, MD 06/16/20 1548 Signed By: 06/16/20 1604 Normal [facility] Complete Blood Count Auto Di ffon 06-16-2020 Basophils (Bld) [#/Vol] 0.0 10*3/uL Normal 0.0-0.2 [facility] Comment on above: Order Comment: IV st art, KE, 2231. Result Comment: PERF ORMED BY: [place] [address] PATHOLOGIST [employer] TERRIE TROTTER M.D. Performed By: #### C BC, PTT, CMP, PT, LIPASE, TROP, BNP #### [address] Basophils/100 WBC (Bld) 0.3 % Normal . [facility] Comment on above: Order Comment: IV st art, KE, 2231. Performed By: #### C BC, PTT, CMP, PT, LIPASE, TROP, BNP #### [place] [address] [place] Eosinophils (Bld) [#/Vol] 0.0 10*3/uL Normal 0.0-0.45 [facility] Comment on above: Order Comment: IV st art, KE, 2231. Performed By: #### C BC, PTT, CMP, PT, LIPASE, TROP, BNP #### [address] Eosinophils/100 WBC (Bld) 0.2 % Normal . [facility] Comment on above: Order Comment: IV st art, KE, 2231. Performed By: #### C BC, PTT, CMP, PT, LIPASE, TROP, BNP #### [address] Erythrocyte distribution width (RBC) [Ratio] 13.4 % Normal 11.9-15.3 [facility] Comment on above: Order Comment: IV st art, KE, 2231. Performed By: #### C BC, PTT, CMP, PT, LIPASE, TROP, BNP #### [address] Hematocrit (Bld) [Volume fraction] 39.3 % Normal 34.0-46.4 [facility] Comment on above: Order Comment: IV st art, 2231. Performed By: #### C BC, PTT, CMP, PT, LIPASE, TROP, BNP #### [address] Hemoglobin (Bld) [Mass/Vol] 13.5 g/dL Normal 11.8-15.4 [facility] Comment on above: Order Comment: IV st art, 2231. Performed By: #### C BC, PTT, CMP, PT, LIPASE, TROP, BNP #### [address] Lymphocytes (Bld) [#/Vol] 1.0 10*3/uL Normal 1.00-4.8 [facility] Comment on above: Order Comment: IV st art, [id number]. Performed By: #### C BC, PTT, CMP, PT, LIPASE, TROP, BNP #### [address] Lymphocytes/100 WBC (Bld) 9.6 % Normal . [facility] Comment on above: Order Comment: IV st art, 2231. Performed By: #### C BC, PTT, CMP, PT, LIPASE, TROP, BNP #### [address] MCH (RBC) [Entitic mass] 31.3 pg Normal 24.7-34.3 [facility] Comment on above: Order Comment: IV st art, 2231. Performed By: #### C BC, PTT, CMP, PT, LIPASE, TROP, BNP #### [address] MCV (RBC) [Entitic vol] 90.8 fL Normal 80-100 [facility] Comment on above: Order Comment: IV st art, 2231. Performed By: #### C BC, PTT, CMP, PT, LIPASE, TROP, BNP #### [address] Mean Corpuscular HGB Conc 34.5 g/dL Normal 32.0-35.0 [facility] Comment on above: Order Comment: IV st art, KE, 2231. Performed By: #### C BC, PTT, CMP, PT, LIPASE, TROP, BNP #### [facility] [address] Monocytes (Bld) [#/Vol] 0.9 10*3/uL High 0.0-0.8 [facility] Comment on above: Order Comment: IV st art, KE, 2231. Performed By: #### C BC, PTT, CMP, PT, LIPASE, TROP, BNP #### [facility] [address] Monocytes/100 WBC (Bld) 8.4 % Normal . [facility] Comment on above: Order Comment: IV st art, KE, 2231. Performed By: #### C BC, PTT, CMP, PT, LIPASE, TROP, BNP #### [address] Neutrophils (Bld) [#/Vol] 8.3 10*3/uL High 1.8-7.7 [facility] Comment on above: Order Comment: IV st art, 2231. Performed By: #### C BC, PTT, CMP, PT, LIPASE, TROP, BNP #### [address] Neutrophils/100 WBC (Bld) 81.5 % Normal . [facility] Comment on above: Order Comment: IV st art, 2231. Performed By: #### C BC, PTT, CMP, PT, LIPASE, TROP, BNP #### [place] [address] [place] Nucleated RBC/100 WBC (Bld) [Ratio] 0.0 % Normal 0-0.5 [facility] Comment on above: Order Comment: IV st art, KE, 2231. Performed By: #### C BC, PTT, CMP, PT, LIPASE, TROP, BNP #### [place] [address] [place] Platelet mean volume (Bld) [Entitic vol] 7.6 fL Normal 6.3-10.7 [facility] Comment on above: Order Comment: IV st art, KEJ, 2231. Performed By: #### C BC, PTT, CMP, PT, LIPASE, TROP, BNP #### [facility] [address] Platelets (Bld) [#/Vol] 269 10*3/uL Normal 150-450 [facility] Comment on above: Order Comment: IV st art, KEJ, 2231. Performed By: #### C BC, PTT, CMP, PT, LIPASE, TROP, BNP #### [facility] [address] RBC (Bld) [#/Vol] 4.33 10*6/uL Normal 3.60-5.00 [facility] Comment on above: Order Comment: IV st art, , 2231. Performed By: #### C BC, PTT, CMP, PT, LIPASE, TROP, BNP #### [facility] [address] WBC (Bld) [#/Vol] 10.2 10*3/uL Normal 4.5-11.0 [facility] Comment on above: Order Comment: IV st art, , 2231. Performed By: #### C BC, PTT, CMP, PT, LIPASE, TROP, BNP #### [facility] [address] D-Dimer High Sensitivityon 0 06-16-2020 D-Dimer High Sensitivity 211 ng/mL Normal 0-243 [facility] Comment on above: Result Comment: The reference range for D-dimer is <243 ng/mL D-dimer units. D-dimer results must be used in conjunction with a clinical pretest probability (PTP) assessment model for deep vein thrombosis (DVT) and pulmonary embolism (PE). Results <230 ng/mL d-dimer units can be used as a negative predictor in patients with low or moderate probability for DVT/PE. Results above the exclusion threshold of 230 ng/ml D-dimer units for DVT/PE may indicate the need for further diagnostic testing. D-Dimer can be increased in hospitalized patients due to co-morbid conditions. PERFORMED BY: [place] [id number] PATHOLOGIST [employer] TERRIE TROTTER M.D. Performed By: #### C BC, PTT, CMP, PT, LIPASE, TROP, BNP #### [place] [id number] [facility] D-Dimer High Sensitivity < 200 Normal 0-243 [facility] Comment on above: Order Comment: IV st art, KEJ, 2232. Result Comment: The reference range for D-dimer is <243 ng/mL D-dimer units. D-dimer results must be used in conjunction with a clinical pretest probability (PTP) assessment model for deep vein thrombosis (DVT) and pulmonary embolism (PE). Results <230 ng/mL d-dimer units can be used as a negative predictor in patients with low or moderate probability for DVT/PE. Results above the exclusion threshold of 230 ng/ml D-dimer units for DVT/PE may indicate the need for further diagnostic testing. D-Dimer can be increased in hospitalized patients due to co-morbid conditions. PERFORMED BY: [place] [address] PATHOLOGIST [employer] TERRIE TROTTER M.D. Performed By: #### C BC, PTT, CMP, PT, LIPASE, TROP, BNP #### [place] [id number] [facility] ECG 12 lead ECGon 06-16-2020 ECG 12 lead ECG [place] [address] Electrocardiograph Report Signed Patient: Zoe Degroot MR#: [id number] 5029 : 1955 Acct:[id number] Age/Sex: 65 / F ADM Date: 06/15/20 Loc: Room: 5F0191-7 Type: ADM INOo Attending Dr: Gage Noland MD Ordering Provider: Jean Solis MD Date of Service: 06/15/20 ECG/ECG 12 lead ECG: Chest Pain Copies to: Test Reason : Blood Pressure : 141/076 mmHG Vent. Rate : 094 BPM Atrial Rate : 094 BPM P-R Int : 114 ms QRS Dur : 090 ms QT Int : 364 ms P-R-T Axes : 043 054 036 degrees QTc Int : 455 ms Normal sinus rhythm Normal ECG When compared with ECG of 15-JUN-2020 07:50, No significant change was found Confirmed by BELLE TERAN MD ([id number]) on 06/17/2020 11:11:01 AM Referred By: Electronically Signed By:BELLE TERAN MD Transcribed By: MUS Dictated By: Belle Teran MD 06/15/202205 Signed By: 06/17/[address] [facility] E[facility] echo transthoracicon [facility] echo transthoracic [facility] [place] [address] [place] [address] Echocardiogram Signed Patient: Zoe Degroot MR#: [id number] 5029 : 1955 Acct:[id number] Age/Sex: 65 / F ADM Date: 06/15/20 Loc: Room: [address] [place] [address] Type: ADM INOo Attending Dr: Gage Noland MD Ordering Provider: Hussain Culp DO Date of Service: 06/15/20 [facility] echo transthoracic: Chest Pain Copies to: DO Lokesh Hickman MD Weight: 141 lb Performed By: Stacey Zavala LEDY BSA: 1.7 m2 BP: 116/75 mmHg HR: 87 Reason For Study: Chest Pain History: ETOH Interpretation Summary Ejection Fraction = 55-60%. The left ventricular size, thickness and function are normal The left ventricular wall motion is normal. There is trace mitral regurgitation. There is trace tricuspid regurgitation. Normal transthoracic echocardiogram. There is no comparison study available. Procedure/Quality: A two-dimensional transthoracic echocardiogram with color flow and Doppler was performed. Left Ventricle: The left ventricular size, thickness and function are normal. Ejection Fraction = 55-60%. The left ventricular wall motion is normal. Left Atrium: The left atrium appears normal in size. Right Atrium: The right atrium appears normal in size. Right Ventricle: The right ventricular size, thickness and function are normal. Aortic Valve: The aortic valve is normal in structure and function. No aortic regurgitation is present. Mitral Valve: The mitral valve is normal in structure and function. There is trace mitral regurgitation. Tricuspid Valve: The tricuspid valve is normal in structure and function. There is trace tricuspid regurgitation. Pulmonic Valve: The pulmonic valve is normal in structure and function. Arteries: The aortic root is normal size. Pericardium/Pleura: No pericardial effusion seen. There is no pleural effusion. IVC/Hepatic Viens: The inferior vena cava is normal in size, with a normal collapsibility index. Measurements with Normals IVSd: 0.73 cm (0.7-1.1 cm)LVIDd: 4.3 cm (3.7-5.4 cm) LVPWd: 0.69 cm (0.7-1.1 cm)LVIDs: 2.0 cm (2.3-3.6 cm) LA dimension: 3.1 cm(2.3-4.0 cm)Ao root diam: 2.9 cm(2.0-3.2 cm) Doppler with Normals RVSP(TR): 30.2 mmHg (18-35mmHg) LV V1 max: 109.1 cm/sec (0.7-1.7m/s)MV E max deng: 70.1 cm/sec(0.8-1.3m/s) MV A max deng: 54.1 cm/sec(0.0-0.0m/s) MV E/A: 1.3 (<1.5) MMode/2D Measurements Calculations RVDd: 2.9 cm FS: 52.4 % Ao root area: LVOT diam: 1.8 cm EDV(Teich): 6.5 cm2 LVOT area: 2.6 cm2 81.0 ml ESV(Teich): 13.1 ml EF(Teich): 83.8 % __ LVLd ap4: 7.4 cm SV(MOD-sp4): LAV(MOD-sp4): LA A2 area: 16.8 cm2 EDV(MOD-sp4): 41.2 ml 33.9 ml 75.5 ml LAV(MOD-sp2): LA A4 area: 14.9 cm2 LVLs ap4: 6.4 cm 41.2 ml LA length (vol): ESV(MOD-sp4): 5.1 cm 34.3 ml LA vol: 42.1 ml EF(MOD-sp4): LA vol index: 54.6 % 25.0 ml/m2 Doppler Measurements Calculations MV dec time: E/E' lat: 6.8 MV dec slope: Ao V2 max: 0.19 sec E/E' med: 12.9 133.0 cm/sec 381.1 cm/sec2 Ao max P.1 mmHg Ao mean P.1 mmHg Ao V2 mean: 95.5 cm/sec Ao V2 VTI: 26.6 cm NAI(I,D): 2.0 cm2 NAI(V,D): 2.1 cm2 __ LV V1 max PG: TV max PG: TR max deng: 4.8 mmHg 27.0 mmHg 260.6 cm/sec LV V1 mean PG: TR max P.2 mmHg 3.3 mmHg RAP systole: 3.0 mmHg LV V1 mean: 87.1 cm/sec LV V1 VTI: 20.3 cm Transcribed By: ABDIEL 06/16/20 1226 Dictated By: Lokesh Chang MD 06/16/20 0944 Signed By: 06/16/20 1226 Normal [facility] Lipid Panelon 06-16-2020 Cholesterol [Mass/Vol] 174 mg/dL Normal 140-200 [facility] Comment on above: Result Comment: Chol less than 200 mg/dl low risk Chol 201-239 mg/dl borderline risk Chol 240 mg/dl and greater high risk Performed By: #### C BC, PTT, CMP, PT, LIPASE, TROP, BNP #### [address] Cholesterol in HDL [Mass/Vol] 72 mg/dL Normal 35-85 [facility] Comment on above: Result Comment: HDL CHOL ATP-III CLASSIFICATION Cardiovascular Risk HDL > or equal to 60 mg/dL LOW HDL < 40 mg/dL HIGH Performed By: #### C BC, PTT, CMP, PT, LIPASE, TROP, BNP #### [facility] [address] Cholesterol.total /Cholesterol in HDL [Mass ratio] 2.4 {ratio} Normal <5.0 [facility] Comment on above: Result Comment: PERF ORMED BY: [place] [address] PATHOLOGIST [employer] TERRIE TROTTER M.D. Performed By: #### C BC, PTT, CMP, PT, LIPASE, TROP, BNP #### [facility] [address] LDL Cholesterol,Calcu lated 92 mg/dL Normal 0-100 [facility] Comment on above: Result Comment: LDL ATP III CLASSIFICATION LDL less than 100 mg/dL Optimal LDL 100-129 mg/dL Near or above optimal LDL 130-159 mg/dL Borderline high LDL 160-189 mg/dL High LDL greater than 189 mg/dL Very high Performed By: #### C BC, PTT, CMP, PT, LIPASE, TROP, BNP #### [address] Triglyceride w/Reflex 49 mg/dL Normal 35-149 [facility] Comment on above: Result Comment: TRIG ATP III CLASSIFICATION TRIG less than 150 mg/dL Normal TRIG 150-199 mg/dL Borderline high TRIG 200-500 mg/dL High TRIG greater than 500 mg/dL Very high Standard traceable to the Center for Disease Conrtrol and Prevention (CDC) test method. Performed By: #### C BC, PTT, CMP, PT, LIPASE, TROP, BNP #### [facility] [address] VLDL CHOLESTEROL 9 mg/dL Normal [facility] Comment on above: Performed By: #### C BC, PTT, CMP, PT, LIPASE, TROP, BNP #### [facility] [address] Partial Thromboplastin Timeo n 06-16-2020 aPTT Coag (Bld) [Time] 30.2 s Normal 25.1-36.5 [facility] Comment on above: Order Comment: IV st art, [id number]. Performed By: #### C BC, PTT, CMP, PT, LIPASE, TROP, BNP #### [address] Prothrombin Time INRon 06-16 INR Coag (PPP) [Relative time] 1.1 {INR} Normal [facility] Comment on above: Order Comment: IV st art, KE, 2231. Result Comment: INR Therapeutic Range A) Pre- and Peroperative OAT started two weeks before surgery. NOT HIP SURGERY: 1.5 - 2.5 HIP SURGERY: 2 - 3 B) Primary and secondary prevention of venous THROMBOSIS: 2 - 3 C) Active venous thrombosis, pulmonary embolism and prevention of recurrent venous thrombosis: 2 - 3 D) Prevention of arterial thromboembolism including patients with mechanical heart valves: 3 - 4.5 Performed By: #### C BC, PTT, CMP, PT, LIPASE, TROP, BNP #### [address] PT Coag (PPP) [Time] 12.1 s Normal 9.0-12.9 [facility] Comment on above: Order Comment: IV st art, 2231. Performed By: #### C BC, PTT, CMP, PT, LIPASE, TROP, BNP #### [address] Troponin I(TnI)on 06-16-2020 Troponin I.cardiac [Mass/Vol] ng/mL Normal 0-0.02 [facility] Comment on above: Order Comment: IV st art, KE, 2231. Result Comment: OBDULIO AL Cut off value > or equal to 0.03 ng/mL in conjunction with clinical conditions of myocardial infarction. (www.escardio.org/guidelines) PERFORMED BY: [place] [address] PATHOLOGIST [employer]FFEE [employer]ENDER TERRIE TROTTER M.D. Performed By: #### C BC, PTT, CMP, PT, LIPASE, TROP, BNP #### [address] [place] [address] [facility] B-Type Natriuretic Peptideon 06-15-2020 Natriuretic peptide B (Bld) [Mass/Vol] 68.0 pg/mL Normal 5-100 [facility] Comment on above: Result Comment: PERF ORMED BY: [facility] [address] [facility] [place] [address] PATHOLOGIST [employer]FFEE BLENDER TERRIE TROTTER M.D. Performed By: #### C BC, PTT, CMP, PT, LIPASE, TROP, BNP #### [facility] [address] [place] [id number] [facility] COVID-19 Antigenon 1 COVID-19 Antigen Healthcare Worker?: N Edson Reference Edson Reference Negative SARS-CoV+SARS-CoV-2 (COVID-19) Ag [Presence] in Respiratory specimen by Rapid immunoassay Negative for SARS Antigen by LAKESHIA COVID19 Blank Space Edson Disclaimer Negative results, from patients with symptom Edson Disclaimer onset beyond five days, should be treated as Edson Disclaimer presumptive and confirmation with a molecular Edson Disclaimer assay, if necessary, for patient management, Edson Disclaimer may be performed. Negative results do not rule Edson Disclaimer out COVID-19 and should not be used as the sole Edson Disclaimer basis for treatment or patient management Edson Disclaimer decisions, including infection control decisions. Edson Disclaimer Negative results should be considered in the Edson Disclaimer context of a patient's recent exposures, history Edson Disclaimer and the presence of clinical signs and symptoms Edson Disclaimer consistent with COVID-19. COVID19 Blank Space Edson Disclaimer The Edson SARS Antigen LAKESHIA does not differentiate Edson Disclaimer between SARS-CoV and SARS-CoV-2. COVID19 Blank Space Edson Disclaimer This test was developed and its performance Edson Disclaimer characteristic determined by [employer] and Edson Disclaimer validated at [facility]. This Edson Disclaimer test has not been FDA cleared or approved. This Edson Disclaimer test has been authorized by FDA under an Emergency Use Edson Disclaimer Authorization (EUA). This test has been validated Edson Disclaimer in accordance with the FDA's Guidance Document (Policy Edson Disclaimer for Diagnostics Testing in Laboratories Certified to Edson Disclaimer Perform High Complexity Testing under CLIA prior to Edson Disclaimer Emergency Use Authorization for Coronavirus Edson Disclaimer iseas during the Public Health Emergency) Edson Disclaimer issued on June 16, 2019. This test is only authorized Edson Disclaimer for the duration of time the declaration that Edson Disclaimer circumstances exist justifying the authorization of Edson Disclaimer the emergency use of in vitro diagnostic tests for Edson Disclaimer detection of SARS-CoV-2 virus and/or diagnosis of Edson Disclaimer COVID-19 infection under section 564(b)(1) of the Edson Disclaimer Act, 21 U.S.C. 360bbb-3(b)(1), unless the Edson Disclaimer authorization is terminated or revoked sooner. PERFORMED BY: [facility] [address] [place] [address] PATHOLOGIST COFFEE BLENDER TERRIE TROTTER M.D. Normal [facility] Comment on above: Performed By: #### S ELIEL DELONGID-19 EDSON #### [facility] [address] Complete Blood Count Auto Di ffon 06-15-2020 Basophils (Bld) [#/Vol] 0.0 10*3/uL Normal 0.0-0.2 [facility] Comment on above: Result Comment: PERF ORMED BY: [place] [address] PATHOLOGIST [employer]FFEE BLENDER TERRIE TROTTER M.D. Performed By: #### C BC, PTT, CMP, PT, LIPASE, TROP, BNP #### [address] Basophils/100 WBC (Bld) 0.2 % Normal . [facility] Comment on above: Performed By: #### C BC, PTT, CMP, PT, LIPASE, TROP, BNP #### [address] Eosinophils (Bld) [#/Vol] 0.0 10*3/uL Normal 0.0-0.45 [facility] Comment on above: Performed By: #### C BC, PTT, CMP, PT, LIPASE, TROP, BNP #### [address] Eosinophils/100 WBC (Bld) 0.2 % Normal . [facility] Comment on above: Performed By: #### C BC, PTT, CMP, PT, LIPASE, TROP, BNP #### [address] Erythrocyte distribution width (RBC) [Ratio] 13.1 % Normal 11.9-15.3 [facility] Comment on above: Performed By: #### C BC, PTT, CMP, PT, LIPASE, TROP, BNP #### [address] Hematocrit (Bld) [Volume fraction] 41.6 % Normal 34.0-46.4 [facility] Comment on above: Performed By: #### C BC, PTT, CMP, PT, LIPASE, TROP, BNP #### [address] Hemoglobin (Bld) [Mass/Vol] 14.2 g/dL Normal 11.8-15.4 [facility] Comment on above: Performed By: #### C BC, PTT, CMP, PT, LIPASE, TROP, BNP #### [address] Lymphocytes (Bld) [#/Vol] 1.0 10*3/uL Normal 1.00-4.8 [facility] Comment on above: Performed By: #### C BC, PTT, CMP, PT, LIPASE, TROP, BNP #### [address] Lymphocytes/100 WBC (Bld) 11.4 % Normal . [facility] Comment on above: Performed By: #### C BC, PTT, CMP, PT, LIPASE, TROP, BNP #### [address] MCH (RBC) [Entitic mass] 31.0 pg Normal 24.7-34.3 [facility] Comment on above: Performed By: #### C BC, PTT, CMP, PT, LIPASE, TROP, BNP #### [address] MCV (RBC) [Entitic vol] 90.6 fL Normal 80-100 [facility] Comment on above: Performed By: #### C BC, PTT, CMP, PT, LIPASE, TROP, BNP #### [address] Mean Corpuscular HGB Conc 34.2 g/dL Normal 32.0-35.0 [facility] Comment on above: Performed By: #### C BC, PTT, CMP, PT, LIPASE, TROP, BNP #### [address] Monocytes (Bld) [#/Vol] 0.8 10*3/uL Normal 0.0-0.8 [facility] Comment on above: Performed By: #### C BC, PTT, CMP, PT, LIPASE, TROP, BNP #### [address] Monocytes/100 WBC (Bld) 9.5 % Normal . [facility] Comment on above: Performed By: #### C BC, PTT, CMP, PT, LIPASE, TROP, BNP #### [address] Neutrophils (Bld) [#/Vol] 7.0 10*3/uL Normal 1.8-7.7 [facility] Comment on above: Performed By: #### C BC, PTT, CMP, PT, LIPASE, TROP, BNP #### [address] Neutrophils/100 WBC (Bld) 78.7 % Normal . [facility] Comment on above: Performed By: #### C BC, PTT, CMP, PT, LIPASE, TROP, BNP #### [address] Nucleated RBC/100 WBC (Bld) [Ratio] 0.2 % Normal 0-0.5 [facility] Comment on above: Performed By: #### C BC, PTT, CMP, PT, LIPASE, TROP, BNP #### [address] Platelet mean volume (Bld) [Entitic vol] 7.2 fL Normal 6.3-10.7 [facility] Comment on above: Performed By: #### C BC, PTT, CMP, PT, LIPASE, TROP, BNP #### [address] Platelets (Bld) [#/Vol] 251 10*3/uL Normal 150-450 [facility] Comment on above: Performed By: #### C BC, PTT, CMP, PT, LIPASE, TROP, BNP #### [address] RBC (Bld) [#/Vol] 4.58 10*6/uL Normal 3.60-5.00 [facility] Comment on above: Performed By: #### C BC, PTT, CMP, PT, LIPASE, TROP, BNP #### [address] WBC (Bld) [#/Vol] 8.9 10*3/uL Normal 4.5-11.0 [facility] Comment on above: Performed By: #### C BC, PTT, CMP, PT, LIPASE, TROP, BNP #### [address] Comprehensive Metabolic Pane herson 06-15-2020 Albumin [Mass/Vol] 3.9 g/dL Normal 3.2-5.5 [facility] Comment on above: Performed By: #### C BC, PTT, CMP, PT, LIPASE, TROP, BNP #### [address] Albumin/Globulin [Mass ratio] 1.4 {ratio} Normal [facility] Comment on above: Performed By: #### C BC, PTT, CMP, PT, LIPASE, TROP, BNP #### [address] ALP [Catalytic activity/Vol] 47 U/L Normal 32-92 [facility] Comment on above: Performed By: #### C BC, PTT, CMP, PT, LIPASE, TROP, BNP #### [address] ALT [Catalytic activity/Vol] 21 U/L Normal 10-60 [facility] Comment on above: Performed By: #### C BC, PTT, CMP, PT, LIPASE, TROP, BNP #### [address] AST [Catalytic activity/Vol] 22 U/L Normal 10-42 [facility] Comment on above: Performed By: #### C BC, PTT, CMP, PT, LIPASE, TROP, BNP #### [address] Bilirubin [Mass/Vol] 0.7 mg/dL Normal 0.3-1.2 [facility] Comment on above: Performed By: #### C BC, PTT, CMP, PT, LIPASE, TROP, BNP #### [address] Calcium [Mass/Vol] 8.8 mg/dL Normal 8.2-10.2 [facility] Comment on above: Performed By: #### C BC, PTT, CMP, PT, LIPASE, TROP, BNP #### [address] Chloride [Moles/Vol] 103 mmol/L Normal 95-114 [facility] Comment on above: Performed By: #### C BC, PTT, CMP, PT, LIPASE, TROP, BNP #### [address] CO2 [Moles/Vol] 23.3 mmol/L Normal 22.0-30.0 [facility] Comment on above: Performed By: #### C BC, PTT, CMP, PT, LIPASE, TROP, BNP #### [address] Creatinine [Mass/Vol] 0.64 mg/dL Normal 0.44-1.03 [facility] Comment on above: Performed By: #### C BC, PTT, CMP, PT, LIPASE, TROP, BNP #### [address] Creatinine Clr Calc Pharmacy 59.73 [facility] Comment on above: Performed By: #### C BC, PTT, CMP, PT, LIPASE, TROP, BNP #### [address] Estimated GFR ( Odilia > 60 [facility] Comment on above: Result Comment: GFR estimated reference range: According to KDOQI guidelines, <60 ml/min/1.73m2 is sufficient to diagnose a patient with chronic kidney disease. Performed By: #### C BC, PTT, CMP, PT, LIPASE, TROP, BNP #### [address] Estimated GFR (Non- Am > 60 [facility] Comment on above: Performed By: #### C BC, PTT, CMP, PT, LIPASE, TROP, BNP #### [address] Globulin (S) [Mass/Vol] 2.7 g/dL [facility] Comment on above: Performed By: #### C BC, PTT, CMP, PT, LIPASE, TROP, BNP #### [address] [place] [address] [place] Glucose [Mass/Vol] 117 mg/dL High 70-100 [facility] Comment on above: Result Comment: [facility] Glucose Reference Range is dependent on time and content of last meal. Glucose of more than 200 mg/dL in a nonstressed, ambulatory subject supports the diagnosis of Diabetes Mellitus. ADA recommended reference range Performed By: #### C BC, PTT, CMP, PT, LIPASE, TROP, BNP #### [address] Potassium [Moles/Vol] 3.7 mmol/L Normal 3.5-5.1 [facility] Comment on above: Performed By: #### C BC, PTT, CMP, PT, LIPASE, TROP, BNP #### [address] Protein [Mass/Vol] 6.6 g/dL Normal 6.1-7.9 [facility] Comment on above: Performed By: #### C BC, PTT, CMP, PT, LIPASE, TROP, BNP #### [address] Sodium [Moles/Vol] 136 mmol/L Normal 136-146 [facility] Comment on above: Performed By: #### C BC, PTT, CMP, PT, LIPASE, TROP, BNP #### [address] Urea nitrogen [Mass/Vol] 10 mg/dL Normal 9-23 [facility] Comment on above: Performed By: #### C BC, PTT, CMP, PT, LIPASE, TROP, BNP #### [address] ECG 12 lead ECGon 06-15-2020 ECG 12 lead ECG [facility] [place] [address] [place] [address] Electrocardiograph Report Signed Patient: Zoe Degroot MR#: [id number] : 1955 Acct:[id number] Age/Sex: 65 / F ADM Date: 06/15/20 Loc: ER Room: Type: REG ER Attending Dr: Ordering Provider: Montrell Watson DO Date of Service: 06/15/20 ECG/ECG 12 lead ECG: CHEST PAIN Copies to: Test Reason : Blood Pressure : / mmHG Vent. Rate : 088 BPM Atrial Rate : 088 BPM P-R Int : 112 ms QRS Dur : 084 ms QT Int : 378 ms P-R-T Axes : 048 029 062 degrees QTc Int : 457 ms Normal sinus rhythm Normal ECG No previous ECGs available Confirmed by Montrell Watson DO ([id number]) on 06/15/2020 8:30:21 AM Referred By: Electronically Signed By:Montrell Watson DO Transcribed By: MUS Dictated By: Montrell Watson DO 06/15/20 0750 Signed By: 06/15/20 0830 Normal [facility] Lipaseon 06-15-2020 Lipase [Catalytic activity/Vol] 35.0 U/L Normal 22-51 [facility] Comment on above: Result Comment: PERF ORMED BY: [place] [address] PATHOLOGIST COFFEE BLENDER TERRIE TROTTER M.D. Performed By: #### C BC, PTT, CMP, PT, LIPASE, TROP, BNP #### [address] Partial Thromboplastin Timeo n 06-15-2020 aPTT Coag (Bld) [Time] 29.4 s Normal 25.1-36.5 [facility] Comment on above: Result Comment: PERF ORMED BY: [place] [address] PATHOLOGIST COFFEE BLENDER TERRIE TROTTER M.D. Performed By: #### C BC, PTT, CMP, PT, LIPASE, TROP, BNP #### [facility] [address] [place] [address] [place] Prothrombin Time INRon 06-15 INR Coag (PPP) [Relative time] 1.0 {INR} Normal [facility] Comment on above: Result Comment: INR Therapeutic Range A) Pre- and Peroperative OAT started two weeks before surgery. NOT HIP SURGERY: 1.5 - 2.5 HIP SURGERY: 2 - 3 B) Primary and secondary prevention of venous THROMBOSIS: 2 - 3 C) Active venous thrombosis, pulmonary embolism and prevention of recurrent venous thrombosis: 2 - 3 D) Prevention of arterial thromboembolism including patients with mechanical heart valves: 3 - 4.5 Performed By: #### C BC, PTT, CMP, PT, LIPASE, TROP, BNP #### [facility] [address] PT Coag (PPP) [Time] 11.5 s Normal 9.0-12.9 [facility] Comment on above: Performed By: #### C BC, PTT, CMP, PT, LIPASE, TROP, BNP #### [address] Edson Ag Negativeon 06-16-19 Edson Ag Negative Negative Normal Negative [facility] Comment on above: Result Comment: This is a duplicate Edson SARS Antigen (LAKESHIA) result to be used for statistical tracking purpose only. PERFORMED BY: [place] [address] PATHOLOGIST COFFEE BLENDER TERRIE TROTTER M.D. Performed By: #### S BALJEET, COVID-19 EDSON #### [address] Troponin I(TnI)on 06-15-2020 Troponin I.cardiac [Mass/Vol] ng/mL Normal 0-0.02 [facility] Comment on above: Result Comment: OBDULIO AL Cut off value > or equal to 0.03 ng/mL in conjunction with clinical conditions of myocardial infarction. (www.escardio.org/guidelines) PERFORMED BY: [place] [address] PATHOLOGIST COFFEE BLENDER TERRIE TROTTER M.D. Performed By: #### C BC, PTT, CMP, PT, LIPASE, TROP, BNP #### [place] [address] [place] XR chest 1V portableon 06-15 XR chest 1V portable [facility] [place] [address] [place] [address] XRay Report Signed Patient: Zoe Degroot MR#: [id number] : 1955 Acct:[id number] Age/Sex: 65 / F ADM Date: 06/15/20 Loc: ER Room: Type: [facility] ER Attending Dr: Ordering Provider: Montrell Watson DO Date of Service: 06/15/20 XR/XR chest 1V portable: CHEST PAIN Copies to: Montrell Watson DO PORTABLE CHEST(0841 hours): CLINICAL HISTORY: Chest pain, epigastric pain, sore throat, headache. Pain radiates to the jaw started yesterday. COMPARISON: None FINDINGS: A single AP portable view of the chest was obtained in erect position. The transverse diameter of the cardiopericardial silhouette is unremarkable. There is no pneumothorax or pulmonary congestion. Mild chronic interstitial thickening is noted without acute infiltrate or pleural effusion. Electrocardiographic leads are noted. XR/XR chest 1V portable IMPRESSION: NO ACUTE INFILTRATE OR PULMONARY CONGESTION. Impression dictated by: Ben Borrero M.D.06/15/2020 9:06 AM Dictation Location: [place] [address] Transcribed By: [facility] 06/15/20 09 Dictated By: Ben Borrero MD 06/15/20 09 Signed By: 06/15/[address] [facility] BN ANKLE, COMPLETE, MIN 3 EWSon 12-07-2017 BN ANKLE, COMPLETE, MIN 3 VIEWS Name: ZOE DAWSON STUDY:BN ANKLE, COMPLETE, MIN 3 VIEWS; 12/07/2017 3:59 pm INDICATION:Signs/Symptoms: ap lat mortise. COMPARISON:None ORDERING CLINICIAN:RAE WILSON FINDINGS:AP, lateral common oblique radiograph of the left ankle provided. Remote fracture deformity of the distal left tibia and fibula arenoted with osseous fusion across the syndesmosis of the principalproximal fibula fragment and tibia and single screw across theprincipal distal fibular fragment and talus. There is associatedankylosis of the ankle joint and associated moderate productivedegenerative changes of the subtalar joint as well as midfootarticulations. Numerous surgical clips overlie the soft tissues ofthe distal left lower leg. No definite radiographic evidence of acutefracture or dislocation. IMPRESSION:Remote fracture deformity and postsurgical changes of the left ankleas described Electronically signed by: FANY JARRELL MD Normal [facility] BN KNEE; 1 OR 2 VIEWSon 11-15 BN KNEE; 1 OR 2 VIEWS Name: ZOE DAWSON STUDY:KNEE 1OR 2 VIEWS; 12/07/2017 3:59 pm INDICATION:Signs/Symptoms: ap/lat PAIN AFTER INJURY. COMPARISON:None ORDERING CLINICIAN:RAE WILSON FINDINGS:AP and lateral radiograph of the left knee are provided. Mild tricompartment productive degenerative changes are seen. Noradiographic evidence of acute fracture or dislocation. No sizableeffusion. Subtle remote fracture deformity of the proximal lefttibial shaft is noted. IMPRESSION:Mild tricompartment left knee arthrosis Electronically signed by: FANY JARRELL MD Normal [facility] Initial Visit (Orthopaedic S urgery)on 12-07-2017 Initial Visit (Orthopaedic Surgery) Chief Complaintpatient visit for left ankle evaluation History of Present IllnessChief complaint is left knee pain and some left hindfoot pain.This is a 62-year-old female who from [id number] I treated with a bone transport for an infected distal tibia. 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 She underwent a bone lengthening and fusion of the ankle and has done very well. 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 She's noticed that she developed left hindfoot pain over the past several months. She wanted to get that looked at she was worried about infection etc. She denies any fever or chills. 10 days ago she was walking near her horses when one of the horses broke through the fragments crashed the fence into her left knee. She was seen at [facility] in [facility] where x-rays were taken. She continues to have difficulty walking on that knee albeit she's been walking anyway. She has pain when the knee comes out to full extension and with weightbearing.Her physical examination reveals a 5 foot 4 inch 135 pound female. Head is atraumatic and normocephalic her pupils are equally round. Neck is supple respirations are unlabored and regular with no audible wheezes. Heart regular rate and rhythm abdomen is thin and nondistended.Her left lower extremity has ecchymosis along the entire posterior portion of the left knee into the calf she has a negative Homans sign. She has full knee extension but pain on extension and about 110 of flexion the knee is stable anterior posteriorly medial and laterally she's tender over the lateral tibial plateau.Her left ankle is fused in 90 with about 10 of valgus. She does have some tenderness along the lateral subtalar joint she has a very little movement and subtalar joint. She has palpable dorsalis pedis posterior tibial pulse.X-rays were done of the left knee and left ankle. She has a what appears to be a nondisplaced lateral tibial plateau fracture. It's only seen on the AP view. 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 I do believe she can be weightbearing as she has been weightbearing last 10 days and is been no displacement. She will wear the brace and see me back in 4-6 weeks at that time I want a repeat x-ray of the left knee if the left foot becomes worse I think a steroid injection into the subtalar joint be beneficial if that doesn't help a CT scan may be beneficial. Follow-up with me in 4-6 weeks Active Problems Ankle pain (209.47) (M25.579) Results/Data Xray Knee 1 or 2 [id number] 12:00Rae Hector[Dec 07, 2017 3:58PM Rae Wilson] Reason: Unspecified for Xray Knee 1 or 2 View Test NameResultFlagReferenceXray Knee 1 or 2 ViewPlease click on the link to view the study images Diagnoses/Problems Knee pain (275.46) (M25.569) Tibial plateau fracture, left, closed, initial encounter (823.00) (S82.481A) OrdersKnee pain Xray Knee 1 or 2 View; Status:Resulted - Preliminary,Retrospective Authorization; Done:07Dec2017 12:00AM Due:[id number];Ordered; For:Knee pain; Ordered By:Rae Wilson;Reason: Unspecified for Xray Knee 1 or 2 ViewLaterality : LeftRadiologist to Determine Optimal Study : YWhat are the patient's signs and symptoms? : ap/lat Signatures Electronically signed by : Rae Wilson MD; Dec 07 2017 4:42PM EST (Author) Normal [facility] Vital Signs Date Time Vital Sign Value Performing Clinician Josh henning 04-27-2024 08:41-0500 Body height 160 cm Addie Merary DO Work Phone: [facility] 04-27-2024 08:41-0500 Body mass index (BMI) [Ratio] 24.8 kg/m2 Addie Merary DO Work Phone: [facility] 04-27-2024 08:41-0500 Body weight 63.5 kg Addie Merary DO Work Phone: [facility] 04-27-2024 08:41-0500 Diastolic blood pressure 80 mm[Hg] Addie Merary DO Work Phone: [facility] 04-27-2024 08:41-0500 Heart rate 67 /min Addie Merary DO Work Phone: [facility] 04-27-2024 08:41-0500 SaO2% (BldA) [Mass fraction] 97 % Addie Merary DO Work Phone: [facility] 04-27-2024 08:41-0500 Systolic blood pressure 142 mm[Hg] Addie Bruner DO Work Phone: [facility] 03-31-2024 15:40-0500 Body mass index (BMI) [Ratio] 24.45 kg/m2 Wilberto Quintero [employer] Work Phone: [facility] 03-31-2024 15:40-0500 Body weight 62.6 kg Wilberto Quintero [employer] Work Phone: [facility] 03-31-2024 15:40-0500 Diastolic blood pressure 80 mm[Hg] Wilberto Quintero [employer] Work Phone: [facility] 03-31-2024 15:40-0500 Heart rate 69 /min Wilberto Quintero [employer] Work Phone: [facility] 03-31-2024 15:40-0500 SaO2% (BldA) [Mass fraction] 97 % Wilberto Quintero [employer] Work Phone: [facility] 03-31-2024 15:40-0500 Systolic blood pressure 136 mm[Hg] Wilberto Quintero [employer] Work Phone: [facility] Healthcare Encounters Encounter Date Encounter Type Care Provider Facility Start: 04-27-2024 End: 04-27-2024 ambulatory ADDIE BRUNER Not Available Start: 04-27-2024 End: 04-27-2024 Office outpatient visit 25 minutes Addie Bruner DO Work Phone: [facility] Comment on above: Encounter for subseq uent annual wellness visit (AWV) in Medicare patient (Primary Dx); ACP (advance care planning); Primary hypertension ([facility]); Irritable bowel syndrome with constipation; Gastroesophageal reflux disease without esophagitis; Primary insomnia; Osteopenia of multiple sites; Major depressive disorder, recurrent episode with anxious distress ([facility]); Elevated LDL cholesterol level ([facility]); SAM (generalized anxiety disorder) ([facility]) Start: 04-27-2024 End: 04-27-2024 Patient encounter procedure Addie Bruner DO Work Phone: [facility] Healthcare Work Phone: Start: 04-25-2024 End: 04-26-2024 Orders Only Addie Bruner DO Work Phone: [facility] External Department Unsolicited Start: 04-08-2024 End: 04-08-2024 Refill Jann Contreras MA [facility] Comment on above: Anxiety Start: 03-31-2024 End: 03-31-2024 Office outpatient visit 15 minutes Wilberto Schulteos [employer] Work Phone: [facility] Comment on above: Gastroesophageal ref lux disease without esophagitis (Primary Dx); Left ear pain; Contusion of scalp, initial encounter Start: 03-31-2024 End: 03-31-2024 ambulatory ADDIE BRUNER Not Available Start: 03-31-2024 End: 03-31-2024 Bamboo flowsheet Addie Bruner DO Work Phone: [facility] Start: 03-31-2024 End: 03-31-2024 Bamboo flowsheet Addie Bruner DO Work Phone: [facility] Start: 02-25-2024 End: 02-25-2024 Refill [facility] Comment on above: Anxiety Start: 01-19-2024 End: 01-19-2024 Refill Catia Charlton LPN [facility] Comment on above: Anxiety Start: 12-04-2023 End: 12-04-2023 Refill Jann Contreras MA [facility] Comment on above: Anxiety Start: 10-21-2023 End: 10-21-2023 ambulatory ADDIE BRUNER Not Available Start: 09-02-2023 End: 09-02-2023 ambulatory ADDIE BRUNER Not Available Start: 08-27-2023 End: 08-27-2023 ambulatory MILADIS A BROWN Not Available Start: 08-19-2023 End: 08-19-2023 ambulatory LAUREN A BROWN Not Available Start: 08-12-2023 End: 08-12-2023 ambulatory LAUREN A BROWN Not Available Start: 08-11-2023 End: 08-11-2023 ambulatory DEBBY Sandi FELTER Not Available Start: 07-21-2023 End: 07-21-2023 ambulatory LAUREN A BROWN Not Available Start: 06-16-2023 End: 06-16-2023 ambulatory ADDIE BRUNER Not Available Start: 04-28-2023 Refill Jann Contreras MA [facility] Comment on above: Anxiety Start: 12-15-2022 End: 06-15-2023 Patient encounter procedure Jann Contreras MA [facility] are Start: 12-07-2017 Patient encounter procedure Rae arriaga [facility] Facility:[id number] Start: 12-07-2017 Patient encounter procedure Rae Zabala Facility:[facility] Procedures Date Procedure Procedure Detail Performing Clinician Start: 04-25-2024 Complete blood count with white cell differential, automated Addie Bruner DO Work Phone: Start: 04-25-2024 Comprehensive metabolic panel Addie Bruner DO Work Phone: Start: 04-25-2024 Lipid panel Addie Bruner DO Work Phone: Start: 04-25-2024 SPECIMEN STATUS REPORT Addie Bruner DO Work Phone: Start: 09-02-2023 Mammography Jann Contreras MA Start: 07-28-2022 End: 07-28-2022 History of amputation of lesser toe 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 Jann Contreras [place] Start: 05-06-2022 Mammography Jannmichelle Contreras [place] Start: 11-07-2020 Colonoscopy Jannmichelle Contreras MA Plan of Treatment Date Care Activity Detail Author Start: 11-07-2030 Screening for malign ant neoplasm of colon [facility] Start: 10-26-2024 End: 10-26-2024 Patient encounter procedure 10/26/2024 9:00 AM EDT Office Visit [facility] [address] [place] [phone] Addie Bruner DO [address] [place] [address] [facility] Start: 09-20-2024 Pneumococcal Vaccine : 65+ Years (3 - PPSV23 or PCV20) Pneumococcal Vaccine: 65+ Years (3 - PPSV23 or PCV20) [facility] Start: 09-20-2024 Pneumococcal Vaccine : 65+ Years (3 of 3 - PPSV23 or PCV20) Pneumococcal Vaccine: 65+ Years (3 of 3 - PPSV23 or PCV20) [facility] Start: 09-01-2024 Screening for malign ant neoplasm of breast Mammogram [facility] Start: 08-09-2024 End: 08-09-2024 Patient encounter procedure 08/09/2024 1:00 PM EDT Office Visit [facility] [address] [place] [phone] Debby Carreon, [employer] [address] [place] [address] [facility] Start: 04-27-2024 End: 04-27-2024 Patient encounter procedure [facility] Comment on above: Encounter for subseq uent annual wellness visit (AWV) in Medicare patient (Primary Dx); ACP (advance care planning) Start: 03-31-2024 End: 03-31-2024 Patient encounter procedure 03/31/2024 3:30 PM EST Office Visit [facility] [address] [place] [address] Addie Bruner DO [address] [place] [address] Arrived [facility] Comment on above: Arrived Start: 12-16-2023 Medicare Annual Well ness (AWV) Medicare Annual Wellness (AWV) [facility] Start: 11-15-2023 Influenza vaccination Influenza Vacc ine (#1) [facility] Start: 08-11-2023 End: 08-11-2023 Patient encounter procedure 08/11/2023 1:05 PM EDT Office Visit [facility] [address] [place] [phone] Debby Carreon, [employer] [address] [place] [address] [facility] Start: 06-16-2023 End: 06-16-2023 Patient encounter procedure 06/16/2023 8:15 AM EDT Office Visit [facility] [address] [place] [address] Addie Bruner, DO [address] [place] [address] [facility] Start: 05-06-2023 Screening for malign ant neoplasm of breast Mammogram [facility] Start: 11-14-2022 Influenza vaccination Influenza Vacc ine (#1) [facility] Start: 1955 Medicare Annual Well ness (AWV) Medicare Annual Wellness (AWV) [facility] Start: 1955 Screening for malign ant neoplasm of colon [facility] Immunizations Immunization Date Immunization Notes Care Provider Fa [facility] 03-31-2024 Seasonal trivalent influenza vaccine, adjuvanted, preservative free Wilberto Quintero [employer] Work Phone: [facility] 04-10-2022 influenza, high dose seasonal, preservative-free [facility] 04-10-2022 influenza virus vacc ine, unspecified formulation [facility] 02-12-2021 influenza, high dose seasonal, preservative-free [facility] 01-25-2020 Seasonal trivalent influenza vaccine, adjuvanted, preservative free [facility] 01-02-2020 influenza, high dose seasonal, preservative-free [facility] 09-21-2019 pneumococcal conjuga te vaccine, 13 valent [facility] 03-16-2019 pneumococcal conjuga te vaccine, 13 valent [facility] 01-19-2019 influenza, injectabl e, madin rosalina canine kidney, preservative free [facility] 11-10-2018 zoster vaccine recombinant Jann De mbek [facility] 06-02-2018 zoster vaccine recombinant Jann De mbek [facility] 03-16-2018 pneumococcal polysaccharide vaccine, 23 valent [facility] 12-10-2016 influenza, injectabl e, quadrivalent, preservative free [facility] 01-02-2016 influenza, injectabl e, quadrivalent, contains preservative [facility] 03-27-2014 influenza, seasonal, injectable, preservative free Jann Contreras MA [facility] 03-27-2014 zoster vaccine, live Jann Ben Junior [facility] Payers Date Payer Category Payer Medicare [employer] MEDICARE REPLACEMENT [id number] 2022-Present [address] [address] [place] [address] [id number] 2022 Medicare (Managed Care) [facility]IC[facility] [id number] 2022 Medicare [id number] 1954 Unknown [id number] [id number]. 2.356 1954 Unknown [id number] 2.16.840.1.603789.3.579. 2.356 1954 Unknown [id number] 2.16.840.1.878511.3.579. 2.1259 1954 Unknown [id number] 2.16.840.1.593468.3.579. 2.1259 1954 Unknown [id number] 2.16.840.1.010391.3.579. 2.1259 1954 Unknown [id number] 2.16.840.1.144976.3.579. 2.1259 1954 Unknown [id number] 2.16.840.1.174471.3.579. 2.1259 1954 Unknown [id number] 2.16.840.1.273484.3.579. 2.9 1954 Unknown [id number] 2.16.840.1.418231.3.579. 2.9 1954 Unknown [id number] 2.16.840.1.265763.3.579. 2.9 1954 Unknown [id number] 2.16.840.1.345084.3.579. 2.9 1954 Unknown [id number] 2.16.840.1.756415.3.579. 2.9 1954 Unknown [id number] 2.16.840.1.175931.3.579. 2.9 1954 Unknown [id number] 2.16.840.1.072518.3.579. 2.9 1954 Unknown [id number] 2.16.840.1.919910.3.579. 2.1258 Unknown [id number] Social History Date Type Detail Facility Start: 08-12-2022 Tobacco smoking status MOIS Never sm oked tobacco [facility] History of tobacco use Passive smoker [facility] Start: 08-12-2022 Tobacco use and exposure Smoke less tobacco non-user [facility] Start: 04-07-2023 End: 04-27-2024 Alcohol intake Ex-drinker (finding) [facility] Start: 04-07-2023 End: 04-27-2024 Alcohol intake [facility] Start: 01-09-2023 End: 04-27-2024 Alcohol Use Disorder Identification Test - Consumption [AUDIT-C] [facility] How often to you hav e a drink containing alcohol? 4 or more times a week [facility] How many standard dr inks containing alcohol do you have on a typical day? 1 or 2 [facility] How often do you hav e 6 or more drinks on 1 occasion? Never [facility] Start: 01-09-2023 Alcohol Comment Caffeine intak e 1-2 cups per day [facility] Start: 1955 Sex Assigned At Not on file N [facility] Clinical Notes 05-06-2022 to 04-08-2024 Telephone Encounter - Lacey Nunez NP - 04/08/2024 3:26 PM ESTTelephone Encounter - Lacey Nunez NP - 04/08/2024 3:26 PM ESTTelephone Encounter - Jann Contreras MA - 04/08/2024 2:28 PM EST Note Date & Type Note Facility 04-08-2024 Telephone encounter Note OARRS reviewed with non concerns. E-scribed to pharmacy. [facility] 04-08-2024 Miscellaneous Notes OARRS reviewed with non concerns. E-scribed to pharmacy. Patient called requesting a refill of lorazepam to be sent to [facility]. documented in this encounter [facility] 04-08-2024 Telephone encounter Note Patient called requesting a refill of lorazepam to be sent to [facility]. [facility] 03-31-2024 History of Presen t illness Narrative Images from the original note were not included. Zoe Degroot is a 69 y.o. female presents with chief complaint of No chief complaint on file. HPI: HPI History of Present Illness The patient is a 69-year-old female who presents today with ear pain and also was struck by her horse. She reports experiencing tenderness in her left ear, which she attributes to an incident involving her horse. She has been experiencing headaches but no blurred vision. She also reports difficulty swallowing on the affected side. She has been experiencing fatigue and sinus issues. She has been managing her symptoms with [id number] medications from [facility], including daytime and nighttime formulations, as well as ibuprofen, which has provided some relief. She reports no open wounds or fractures resulting from the incident. She is not experiencing any systemic symptoms such as fever, chills, or sweats. However, she does report minor nasal bleeding following the incident. She does not use a humidifier at home. She needs a refill of Protonix. MEDICATIONS Protonix, ibuprofen. I have reviewed and reconciled the history and medication list with the patient today. 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 ([facility]) 07/28/2022 History of tubal ligation IBS (irritable bowel syndrome) Migraines ([facility]) Other specified gastritis, presence of bleeding unspecified, unspecified chronicity and gastroduodenitis Personal history of other medical treatment muscle used from stomach for ankle RT 1970, 1974, 1986 Unspecified hemorrhoids Unspecified hemorrhoids without mention of complication Varicose vein of leg bilateral legs Visual loss w/corrective lenes SURGICAL HISTORY: Past Surgical History: Procedure Laterality Date LAPAROSCOPY DIAGNOSTIC / BIOPSY / ASPIRATION / LYSIS ORIF ANKLE FRACTURE 2006 left ankle;Disease:fell in barn fx leg/ankle/foot OTHER SURGICAL HISTORY Left muscle used from stomach for ankle LT RI REMOVAL OF LEG VEINS/ULCER Bilateral varicose vein NEELAM legs TOE AMPUTATION Right 5th toe RT,:farm accident VAGINAL DELIVERY 1986, 1970, 1974 SOCIAL HISTORY: Social History Tobacco Use Smoking status: Never Passive exposure: Past Smokeless tobacco: Never Vaping Use Vaping status: Unknown Substance Use Topics Alcohol use: Not Currently Alcohol/week: 4.0 standard drinks of alcohol Types: 4 Standard drinks or equivalent per week Comment: Caffeine intake 1-2 cups per day Drug use: Never Depression: Not at risk (12/15/2022) PHQ-2 PHQ-2 Score: 0 FAMILY HISTORY: Family History Problem Relation Name Age of Onset Colon cancer Mother Breast cancer Mother 65 Leukemia Daughter Tuberculosis Maternal Grandfather MEDICATIONS: Current Outpatient Medications Medication Instructions FLUoxetine (PROzac) 40 MG capsule TAKE 1 CAPSULE BY MOUTH DAILY WITH 20MG CAPSULE FLUoxetine (PROZAC) 20 mg, Oral, Daily ibuprofen 800 mg, Oral, 3 times daily PRN LORazepam (Ativan) 0.5 MG tablet TAKE ONE TABLET BY MOUTH THREE TIMES A DAY NEEDED losartan (COZAAR) 50 mg, Oral, Daily in the morning pantoprazole (PROTONIX) 40 mg, Oral, Every 24 hours ALLERGIES: Allergies Allergen Reactions Ibandronic Acid GI intolerance Other Itching PHYSICAL EXAM: Visit Vitals BP 136/80 Pulse 69 Wt 138 lb SpO2 97% BMI 24.45 kg/m OB Status Postmenopausal Smoking Status Never BSA 1.67 m BP Readings from Last 3 Encounters: 03/31/24 136/80 10/21/23 130/82 08/19/23 130/80 Wt Readings from Last 3 Encounters: 03/31/24 138 lb 10/21/23 136 lb 08/27/23 138 lb Physical Exam Constitutional: General: She is not in acute distress. Appearance: Normal appearance. HENT: Head: Normocephalic. Right Ear: Tympanic membrane normal. Left Ear: Tympanic membrane normal. Nose: Nose normal. Mouth/Throat: Mouth: Mucous membranes are moist. Eyes: Extraocular Movements: Extraocular movements intact. Neck: Vascular: No carotid bruit. Cardiovascular: Rate and Rhythm: Normal rate and regular rhythm. Heart sounds: Normal heart sounds. No murmur heard. Pulmonary: Effort: Pulmonary effort is normal. No respiratory distress. Breath sounds: Normal breath sounds. No wheezing, rhonchi or rales. Musculoskeletal: General: Normal range of motion. Cervical back: Normal range of motion. Skin: General: Skin is warm and dry. Neurological: Mental Status: She is alert and oriented to person, place, and time. Psychiatric: Mood and Affect: Mood normal. Thought Content: Thought content normal. Judgment: Judgment normal. Results ASSESSMENT AND PLAN: Assessment & Plan 1. Ear pain. There is no evidence of infection, redness, or warmth in the ear. The patient reports tenderness and a headache on the left side after being struck by her horse. She has been using ibuprofen, which has provided some relief. She is advised to continue taking ibuprofen for a few days. If she experiences facial pressure, fever, chills, sweats, or worsening headaches, she should contact the office immediately. A flu shot will be administered during this visit. 2. Sinus congestion. The patient reports dry sinuses and occasional blood after the head injury. She has been using ppia-[id number]-[id number] sinus medication from [facility]. She is advised to use a humidifier at home to add moisture to the air. If symptoms persist or worsen, she may take generic Benadryl, especially at night, as long as it does not cause excessive tiredness. 3. Medication management. A refill for Protonix will be sent to [facility] pharmacy. documented in this encounter [facility] 02-25-2024 Miscellaneous Notes My name's Eunice Dawson. My birthday's [birth year]. And I need a refill on my lorazepam. My phone number. [phone], thank you. -Copied from [facility] loaded documented in this encounter [facility] 02-25-2024 Telephone encounter Note My name's Eunice Dawson. My birthday's [birth year]. And I need a refill on my lorazepam. My phone number. [phone], thank you. -Copied from [facility] 12-04-2023 Telephone encounter Note OARRS reviewed with non concerns. E-scribed to pharmacy. [facility] 12-04-2023 Miscellaneous Notes OARRS reviewed with non concerns. E-scribed to pharmacy. Patient called requesting a refill of lorazepam to be sent to [facility]. documented in this encounter [facility] 12-04-2023 Telephone encounter Note Patient called requesting a refill of lorazepam to be sent to [facility]. [facility] 04-28-2023 Miscellaneous Notes Patient called requesting a refill of ativan. Would [facility] that sent [facility]. documented in this encounter [facility] 04-28-2023 Telephone encounter Note Patient called requesting a refill of ativan. Would like that sent to [facility]. [facility] 05-06-2022 Note HISTORY: Bone densit y screening. COMPARISON: 06/20/2020. PROCEDURE: Imaging of the lumbar spine and bilateral hips was obtained for bone density evaluation. FINDINGS: REGION BMD (g/cm??) YOUNG ADULT T-SCORE AGE-MATCHED Z-SCORE LEFT FEMORAL NECK 0.593 -2.3 -0.6 RIGHT FEMORAL NECK 0.683 -1.5 0.2 LUMBAR (L1-L4) 0.799 -2.3 -0.3 The mean BMD and corresponding T-score listed above indicates: Osteopenia and places the patient at a mild to moderate increased risk for fracture. There may be a future risk of developing osteoporosis. Recommend follow-up exam in 1 year, sooner as clinically necessary. Comment: The T-score is the primary focus of the interpretation of a patient???s bone mineral density measurement. The T-score is the number of standard deviations and individual is above or below the mean value for a young female having normal bone mass. The WHO defines osteoporosis based on the T-score value: +1.0 to -0.9 : Normal bone mass -1.0 to -2.5 : Osteopenia and thus may be at future risk of fracture. -2.6 to -5.0 : Osteoporosis and at significantly increased risk of fracture. When compared to the prior study, there has been a nonsignificant decrease of -2.5% in bone mineral density in the lumbar spine and a nonsignificant increase of 2.4% in the mean bone mineral density of both hips. 10 year probability (FRAX) of major osteoporotic fracture is 20% and hip fracture 4.1%. IMPRESSION: OSTEOPENIA. Report reported and signed by Mitchell Walton on 05/07/2022 1353 [facility] Evaluation note Diagnosis Anxiety Anxiety state, unspecified [facility] Diagnosis Primary insomnia- Primary Persistent disorder of initiating or maintaining sleep Other chronic pain Major depressive disorder, recurrent episode with anxious distress (CMS/HCC) Anxiety Anxiety state, unspecified [facility] Diagnosis Primary insomnia- Primary Persistent disorder of initiating or maintaining sleep Other chronic pain Major depressive disorder, recurrent episode with anxious distress (CMS/HCC) Anxiety Anxiety state, unspecified [facility] Diagnosis Anxiety Anxiety state, unspecified [facility] Diagnosis Primary insomnia- Primary Persistent disorder of initiating or maintaining sleep Other chronic pain Major depressive disorder, recurrent episode with anxious distress (CMS/HCC) Gastroesophageal reflux disease without esophagitis- Primary Esophageal reflux Left ear pain Unspecified otalgia Contusion of scalp, initial encounter [facility] Diagnosis Primary insomnia- Primary Persistent disorder of initiating or maintaining sleep Other chronic pain Major depressive disorder, recurrent episode with anxious distress (CMS/HCC) Anxiety Anxiety state, unspecified [facility] Diagnosis Primary insomnia- Primary Persistent disorder of initiating or maintaining sleep Other chronic pain Major depressive disorder, recurrent episode with anxious distress (CMS/HCC) Encounter for subsequent annual wellness visit (AWV) in Medicare patient- Primary ACP (advance care planning) Other specified counseling Primary hypertension (CMS/HCC) Unspecified essential hypertension Irritable bowel syndrome with constipation Irritable bowel syndrome Gastroesophageal reflux disease without esophagitis Esophageal reflux Primary insomnia Persistent disorder of initiating or maintaining sleep Osteopenia of multiple sites Major depressive disorder, recurrent episode with anxious distress (CMS/HCC) Elevated LDL cholesterol level (CMS/HCC) SAM (generalized anxiety disorder) (CMS/HCC) Generalized anxiety disorder documented in this encounter [facility] Summary Purpose Family History No Family History Records FoundNo Family History Records FoundNo Family History Records FoundNo Family History Records FoundNo Family History Records Found Advance Directives No Advanced Directives Records FoundLatest Code Status on File Code Status Date Activated Date Inactivated Comments Full Code 12/15/2022 8:42 AM Date Activated Date Inactivated Comments 12/15/2022 8:42 AM Additional Source Comments INFORMATION SOURCE (unrecogn ized section and content) DATE CREATED AUTHOR 01/05/2018 [employer] DATE CREATED AUTHOR AUTHOR'S ORGANIZ ATION 02/22/2018 [facility] DATE CREATED AUTHOR AUTHOR'S ORGANIZ ATION 05/08/2021 [facility] DATE CREATED AUTHOR AUTHOR'S ORGANIZ ATION 05/08/2022 [facility] DATE CREATED AUTHOR AUTHOR'S ORGANIZ ATION 04/29/2024 [facility] EPIC Reason for Visit (unrecogniz ed section and content) Reason Onset Date Comments Med Refill 04/28/2023 Reason Onset Date Comments Med Refill 01/19/2024 Reason Onset Date Comments Med Refill 02/25/2024 Reason Onset Date Comments Med Refill 12/04/2023 Reason Onset Date Comments Med Refill 04/08/2024 Reason Comments 6 month follow up Pt is being seen tosaida chen for her 6 month follow up and managment of her chronic conditions. Pt had lab work done in preparations for todays visit, results and recommendations will be reviewed with them.Pt would like to discuss the circulation in her ankles. Medicare Annual Wellness Vis it Subsequent Care Teams (unrecognized sec tion and content) Sheather Relationship Specialty Start Date End Date Addie Burner DO PCP - General Internal Medicine 08/08/22 Sheather Relationship Specialty Start Date End Date Addie Bruner DO [address] [place] [address] PCP - General Internal Medicine 08/08/22 Sheather Relationship Specialty Start Date End Date Addie Bruner DO [address] [place] [address] PCP - General Internal Medicine 08/08/22 Sheather Relationship Specialty Start Date End Date Addie Bruner DO [address] [place] [address] PCP - General Internal Medicine 08/08/22 Sheather Relationship Specialty Start Date End Date Addie Bruner DO [address] [place] [address] PCP - General Internal Medicine 08/08/22 Sheather Relationship Specialty Start Date End Date Addie Bruner DO [address] [place] [address] PCP - General Internal Medicine 08/08/22 Sheather Relationship Specialty Start Date End Date Addie Bruner DO [address] [place] [address] PCP - General Internal Medicine 08/08/22 Sheather Relationship Specialty Start Date End Date Addie Bruner DO [address] [place] [address] PCP - General Internal Medicine 08/08/22 FOR RECORDS PERTAINING TO PATIENTS WHO ARE OR HAVE BEEN ENROLLED IN A CHEMICAL DEPENDENCY/SUBSTANCEABUSE PROGRAM, SOME INFORMATION MAY BE OMITTED. This clinical summary was aggregated from multiple sources. Caution should be exercised in using it in the provision of clinical care. This summary normalizes information from multiple sources, and as a consequence, information in this document may materially change the coding, format and clinical context of patient data. In addition, data may be omitted in some cases. CLINICAL DECISIONS SHOULD BE BASED ON THE PRIMARY CLINICAL RECORDS. [facility] provides no warranty or guarantee of the accuracy or completeness of information in this document.
== END 2024-05-23 09:31 | disposition home or self-care (01) ==
LOC: EC 09:30
PROVIDERS: Family Provider Internal Medicine; Visit Provider Orthopaedic Surgery
DX: S52.592A Other fractures of lower end of left radius, initial encounter for closed fracture (principal); S52.615A Nondisplaced fracture of left ulna styloid process, initial encounter for closed fracture
CPT/HCPCS: 73110

== ENCOUNTER 2024-06-20 11:07 | Outpatient (OUT) | payer MEDICARE, SELFPAY ==
--- NOTE | 2024-06-20 | XR_ITS ---
[place] [address] Patient Name: ROBERT DEGROOT MRN: [id number] date: 1955 Sex: F Assigned Patient Location: Current Patient Location: Accession/Order Number: [id number] Exam Date: 06/20/2024 13:22 Report Date: 06/20/2024 13:23 At the request of: PETER DEL RIO MD Procedure: XR wrist LT min 3V 3 views left wrist plain film COMPARISON: 05/23/2024 HISTORY: Follow-up left wrist fracture ACUTE FINDINGS: Displaced ulnar styloid fracture redemonstrated. Increased sclerosis of fracture line of distal radius consistent with interval healing. Stable alignment DEGENERATIVE CHANGE: Unremarkable SOFT TISSUE FINDINGS: Unremarkable JOINT EFFUSION: None POSTOP CHANGES: None BONE MINERALIZATION: Adequate XR/XR wrist LT min 3V IMPRESSION: Healing distal radius fracture with stable alignment Impression dictated by: Armando Trejo M.D.06/20/2024 1:23 PM Dictation Location: [place] [address] Electronically authenticated by: [id number] Y Date: 06/20/2024 13:23
--- OUTSIDE RECORDS SUMMARY | 2024-06-20 11:30 | XMS_ITS | CCD ---
Author Organization [facility] CliniSyct Care Team Providers Care Census Taker Name Role Phone Rae Wilson Unavailable Unavailable *SELF, REFERRED Unavailable Unavailable Addie Bruner Unavailable UnavailRae Navarro Unavailable Unavailable Addie Bruner Unavailable UnavailAddie Piedra DO Primary Care Provider Addie Bruner DO Primary Care Provider [phone] ADDIE BRUNER Attending Unavailable ADDIE BRUNER Attending [...] Allergy Type Date of Onset Reaction(s) Facility (12 sources) Ibandronate Drug Allergy 3 GI intolerance [facility] (12 sources) Other Propensity to adverse reactions 7 [...] Active Start: 08-21-2023 take 1 capsule by mo [facility] once daily FLUoxetine (PROzac) 40 MG [...] at the same time. 0 02/17/2020 Active ibandronic acid 150 mg oral tablet (1 source) Bisphosphonate Start: 04-27-2024 take 1 tablet by mouth every 30 days in the morning ibandronate (Boniva) 150 MG tablet Indications: Osteopenia of multiple sites Take 1 tablet (150 mg) by mouth every 30 (thirty) days Take in morning with full glass of water on an empty stomach. No food, drink, meds, or lying down for 60 minutes after. 12 tablet 04/27/2024 Active ibuprofen 800 mg oral tablet (12 sources) Nonsteroidal Anti-inflammatory Drug Start: 01-21-2024 take [...] 0 Active LORazepam 0.5 mg oral tablet (18 sources) Benzodiazepine Start: 02-25-2024 End: 05-23-2024 take 1 tablet by mouth three times daily as needed LORazepam (Ativan) 0.5 MG tablet Indications: Anxiety TAKE ONE TABLET BY MOUTH THREE TIMES A DAY NEEDED 90 tablet 05/24/2024 Active Start: 12-04-2023 take 1 tablet by [...] (Reorder) losartan potassium 50 mg oral tablet (11 sources) Angiotensin 2 Receptor [facility] Start: 01-21-2024 [...] pantoprazole 40 mg delayed release oral tablet (14 sources) Proton Pump Inhibitor Start: 10-21-2023 End: [...] Classification Problem Date Documented Da te Episodic/Chronic Anxiety disorders (19 sources) Anxiety; Translations: [Anxiety disorder, unspecified] Onset: 4 04-28-2023 Chronic Disorders of lipid metabolism (13 sources) Raised low density lipoprotein cholesterol; Translations: [Pure hypercholesterolemia, unspecified] Onset: 4 10-21-2023 Chronic Esophageal disorders (20 sources) Gastroesophageal reflux disease without esophagitis; Translations: [Gastro-esophageal reflux disease without esophagitis] Onset: 3 Resolved: 3 12-15-2022 Chronic Essential hypertension (13 sources) Essential hypertension; Translations: [Essential (primary) hypertension] Onset: 4 06-16-2023 Chronic Miscellaneous mental health disorders (2 sources) Primary insomnia; Translations: [Primary insomnia] 04-27-2024 Chronic Mood disorders (14 sources) Recurrent major depression; Translations: [Major depressive disorder, recurrent, unspecified] Onset: 3 07-28-2022 Chronic Other bone disease and musculoskeletal deformities (5 sources) Osteopenia; Translations: [Other specified disorders of bone density and structure, multiple sites] Onset: 5 04-27-2024 Episodic Other ear and sense organ disorders (2 sources) Otalgia, left ear; Translations: [Otalgia, unspecified] 03-31-2024 Episodic Other gastrointestinal disorders (12 sources) Irritable bowel syndrome; Translations: [Irritable bowel syndrome without diarrhea] Onset: 3 07-28-2022 Chronic Other gastrointestinal disorders (2 sources) Irritable bowel syndrome characterized by constipation; Translations: [Irritable bowel syndrome with constipation] 04-27-2024 Chronic Other nervous system disorders (12 sources) Chronic pain; Translations: [Other chronic pain] Onset: 3 08-08-2022 Chronic Other non-traumatic joint disorders (3 sources) Pain in unspecified ankle and joints of unspecified foot; Translations: [Pain in unspecified ankle] Onset: 8 Episodic Other non-traumatic joint disorders (1 source) Pain in unspecified knee; Translations: [Pain in unspecified knee] Onset: 8 Episodic Other upper respiratory disease (12 sources) Seasonal allergy; Translations: [Other seasonal allergic rhinitis] Onset: 3 08-08-2022 Chronic Superficial injury; contusion (2 sources) Contusion of scalp; Translations: [Contusion of scalp, initial encounter] 03-31-2024 Episodic Past or Other Problems Problem Classification Problem Date Documented Da te Episodic/Chronic Administrative/social admission (20 sources) Patient encounter status; Translations: [Other specified counseling] Onset: 12-15-2022 Resolved: 06-15-2023 12-15-2022 Episodic Osteoporosis (12 sources) Osteoporosis; Translations: [Age-related osteoporosis without current pathological fracture] Onset: 07-28-2022 Resolved: 10-21-2023 07-28-2022 Chronic Other bone disease and musculoskeletal deformities (11 sources) Acquired absence of other right toe(s); Translations: [Other toe(s) amputation status] Onset: 07-28-2022 Resolved: 07-28-2022 07-28-2022 Episodic Residual codes; unclassified (12 sources) Insomnia; Translations: [Insomnia, unspecified] Onset: 07-28-2022 07-28-2022 Episodic Results Test Name Value Interpretation Reference Range Facility CBC W Auto Differential pane l (Bld)on 04-26-2024 Basophils (Bld) [#/Vol] 0 10*3/uL [facility] Basophils/100 WBC (Bld) 0 % Not Estab. [facility] Eosinophils (Bld) [#/Vol] 0.1 10*3/uL [facility] Eosinophils/100 WBC (Bld) 2 % Not Estab. [facility] Erythrocyte distribution width (RBC) [Ratio] 12.3 % 11.7 - 15.4 % [facility] Hematocrit (Bld) [Volume fraction] 40.2 % 34.0 - 46.6 % [facility] Hemoglobin (Bld) [Mass/Vol] 13 g/dL 11.1 - 15.9 g/dL [facility] Immature granulocytes (Bld) [#/Vol] 0 10*3/uL [facility] Immature granulocytes/100 WBC (Bld) 0 % Not Estab. [facility] Lymphocytes (Bld) [#/Vol] 1.7 10*3/uL [facility] Lymphocytes/100 WBC (Bld) 32 % Not Estab. [facility] MCH (RBC) [Entitic mass] 30.3 pg 26.6 - 33.0 pg [facility] MCHC (RBC) [Mass/Vol] 32.3 g/dL 31.5 - 35.7 g/dL [facility] MCV (RBC) [Entitic vol] 94 fL 79 - 97 fL [facility] Monocytes (Bld) [#/Vol] 0.5 10*3/uL [facility] Monocytes/100 WBC (Bld) 10 % Not Estab. [facility] Neutrophils (Bld) [#/Vol] 2.9 10*3/uL [facility] Neutrophils/100 WBC (Bld) 56 % Not Estab. [facility] Platelets (Bld) [#/Vol] 307 10*3/uL [facility] RBC (Bld) [#/Vol] 4.29 10*6/uL [facility] WBC (Bld) [#/Vol] 5.2 10*3/uL [facility] Comprehensive metabolic pane herson 04-26-2024 Albumin [Mass/Vol] 4.3 g/dL 3.9 - 4.9 g/dL [facility] ALP [Catalytic activity/Vol] 48 U/L [facility] ALT [Catalytic activity/Vol] 17 U/L [facility] AST [Catalytic activity/Vol] 19 U/L [facility] Bilirubin [Mass/Vol] 0.5 mg/dL 0.0 - 1.2 mg/dL [facility] Calcium [Mass/Vol] 9.3 mg/dL 8.7 - 10.3 mg/dL [facility] Chloride [Moles/Vol] 106 mmol/L 96 - 106 mmol/L [facility] CO2 [Moles/Vol] 24 mmol/L 20 - 29 mmol/L [facility] Creatinine [Mass/Vol] 0.83 mg/dL 0.57 - 1.00 mg/dL [facility] GFR/1.73 sq M.predicted among non-blacks MDRD (S/P/Bld) [Vol rate/Area] 76 mL/min/{1.73_m2} 59 - PINF mL/min/1.73 [facility] Globulin (S) [Mass/Vol] 2.5 g/dL 1.5 - 4.5 g/dL [facility] Glucose [Mass/Vol] 88 mg/dL 70 - 99 mg/dL [facility] Potassium [Moles/Vol] 4.2 mmol/L 3.5 - 5.2 mmol/L [facility] Protein [Mass/Vol] 6.8 g/dL 6.0 - 8.5 g/dL [facility] Sodium [Moles/Vol] 143 mmol/L 134 - 144 mmol/L [facility] Urea nitrogen [Mass/Vol] 16 mg/dL 8 - 27 mg/dL [facility] Urea nitrogen/Creatini ne [Mass ratio] 19 mg/mg 12 - 28 [facility] Lipid 1996 panelon 5 Cholesterol [Mass/Vol] 209 mg/dL High 100 - 199 mg/dL [facility] Cholesterol in HDL [Mass/Vol] 83 mg/dL 39 - PINF mg/dL [facility] Cholesterol in LDL [Mass/Vol] 110 mg/dL High 0 - 99 mg/dL [facility] Cholesterol in VLDL [Mass/Vol] 16 mg/dL 5 - 40 mg/dL [facility] Interpretation and review of laboratory results Abnormal [facility] Triglyceride [Mass/Vol] 89 mg/dL 0 - 149 mg/dL [facility] No Panel Informationon 04-26 Performed at: [address] [id number] Assistant Business Manager: Daniel Denise PhD, Phone: [phone] [facility] Specimen Status Reporton Clindamycin Disk diffusion (KB) [place] [facility] Comment on above: Noemi Coatesv CMP14 D efjeffry Duffyrev CMP14 Default A hand-written panel/profile was received from your office. In accordance with the [facility] Ambiguous Test Code Policy dated September 2002, we have completed your order by using the closest currently or formerly recognized AMA panel. We have assigned Comprehensive Metabolic Panel (14), Test Code #250332 to this request. If this is not the testing you wished to receive on this specimen, please contact the [facility] Client Inquiry/Technical Services Department to clarify the test order. We appreciate your business. Noemi Duffyrev LP Default Ambdb Abbrev LP Default A hand-written panel/profile was received from your office. In accordance with the [facility] Ambiguous Test Code Policy dated September 2002, we have completed your order by using the closest currently or formerly recognized AMA panel. We have assigned Lipid Panel, Test Code #884365 to this request. If this is not the testing you wished to receive on this specimen, please contact the [facility] Client Inquiry/Technical Services Department to clarify the test order. We appreciate your business. TSHon 04-26-2024 TSH Qn 1.54 m[IU]/L [facility] BI MAMMOGRAM SCREENING TOMOS YANAIS BILATERALon 09-02-2023 BI MAMMOGRAM SCREENING TOMOSYNTHESIS BILATERAL [...] IS VERY IMPORTANT TO YOUR HEALTH. THE [place] [employer] GUIDELINES RECOMMEND THAT WOMEN 40 [...] Normal Not Available DEXA BONE DENSITYon 06-16-19 DEXA BONE DENSITY Correlation is made with the previous DEXA examination of May 06, 2022. FINDINGS: Dual Femur bone density obtained with a [employer] whole body system: Region BMD Young-Adult Age-Matched [...] AP Spine bone density obtained with a [employer] whole body system: Region BMD Young-Adult Age-Matched [...] IS VERY IMPORTANT TO YOUR HEALTH. CURRENT [place] [employer] OF [employer] GUIDELINES RECOMMENDS ANNUAL MAMMOGRAPHY BEGINNING AT AGE 40. THIS FACILITY USUALLY USES A REMINDER SYSTEM TO ENSURE ALL POSITIONS RECEIVED REMINDER NOTIFICATIONS AT THE TIME BASED ON THE RECOMMENDATIONS OF THIS EXAM. Report reported and signed by Mitchell Walton on 05/07/2022 1350 Normal [facility] Director Trading COVID-19 Lab Corpon 10-28-20 21 SARS-CoV-2 (COVID-19) RNA JARET+probe Ql (Unsp spec) Detected Critically abnormal Not Detected [facility] Comment on above: Order Comment: Reaso n for Exam Exposure to COVID-19 virus Healthcare Worker?: N Result Comment: Mackenzie ents who have a positive COVID-19 test result may now have treatment options. Treatment options are available for patients with mild to moderate symptoms and for hospitalized patients. Visit our website at [email or web address] for resources and information. This nucleic acid amplification test was developed and its performance characteristics determined by [employer]. Nucleic acid amplification tests include RT- PCR [...] detected) result in this assay. PERFORMED BY: [place] [address] PATHOLOGIST FISHERY BIOLOGIST TERRIE TROTTER M.D. Performed By: #### C BC, PTT, CMP, PT, LIPASE, TROP, BNP #### [place] [id number] [facility] STR cardiac stress/regularon 07-11-2020 STR cardiac stress/regular [facility] [place] [address] Cardiac Stress Test Signed Patient: Zoe Gonzalez MR#: [id number] : 1955 Acct:[id number] Age/Sex: 65 / F ADM Date: 07/10/20 Loc: Room: [facility] Dr: Lokesh Chang MD Ordering Provider: [...] MD 07/11/20 1109 Signed By: 07/12/20 1003 Normal [facility] Basic Metabolic Panelon 04-0 -2020 Calcium [Mass/Vol] 8.4 mg/dL Normal 8.2-10.2 [facility] Comment on above: Performed By: #### C BC, PTT, CMP, PT, LIPASE, TROP, BNP #### [facility] [address] [place] [address] [place] Chloride [Moles/Vol] 104 mmol/L Normal 95-114 [facility] Comment on above: Performed By: #### C BC, PTT, CMP, PT, LIPASE, TROP, BNP #### [facility] [address] [place] [address] [place] CO2 [Moles/Vol] 24.6 mmol/L Normal 22.0-30.0 [facility] Comment on above: Performed By: #### C BC, PTT, CMP, PT, LIPASE, TROP, BNP #### [facility] [address] [place] [address] [place] Creatinine [Mass/Vol] 0.61 mg/dL Normal 0.44-1.03 [facility] Comment on above: Performed By: #### C BC, PTT, CMP, PT, LIPASE, TROP, BNP #### [address] Creatinine Clr Calc Pharmacy 64.63 [facility] Comment on above: Result Comment: PERF ORMED BY: [place] [address] PATHOLOGIST FISHERY BIOLOGIST TERRIE TROTTER M.D. Performed By: #### C BC, PTT, CMP, PT, LIPASE, TROP, BNP #### [address] Estimated GFR ( Odilia > 60 [facility] Comment on above: Result Comment: GFR estimated reference range: According to KDOQI guidelines, <60 ml/min/1.73m2 is sufficient to diagnose a patient with chronic kidney disease. Performed By: #### C BC, PTT, CMP, PT, LIPASE, TROP, BNP #### [address] Estimated GFR (Non- Am > 60 [facility] Comment on above: Performed By: #### C BC, PTT, CMP, PT, LIPASE, TROP, BNP #### [address] Glucose [Mass/Vol] 174 mg/dL High 70-100 [facility] Comment on above: Result Comment: [place] Glucose Reference Range is dependent on time and content of last meal. Glucose of more than 200 mg/dL in a nonstressed, ambulatory subject supports the diagnosis of Diabetes Mellitus. ADA recommended reference range Performed By: #### C BC, PTT, CMP, PT, LIPASE, TROP, BNP #### [address] Potassium [Moles/Vol] 3.3 mmol/L Low 3.5-5.1 [facility] Comment on above: Performed By: #### C BC, PTT, CMP, PT, LIPASE, TROP, BNP #### [address] [address] [place] Sodium [Moles/Vol] 137 mmol/L Normal 136-146 [facility] Comment on above: Performed By: #### C BC, PTT, CMP, PT, LIPASE, TROP, BNP #### [address] Urea nitrogen [Mass/Vol] 6 mg/dL Low 9-23 [facility] Comment on above: Performed By: #### C BC, PTT, CMP, PT, LIPASE, TROP, BNP #### [address] Complete Blood Count Auto Di ffon 06-17-2020 Basophils (Bld) [#/Vol] 0.0 10*3/uL Normal 0.0-0.2 [facility] Comment on above: Result Comment: PERF ORMED BY: [place] [address] PATHOLOGIST FISHERY BIOLOGIST TERRIE TROTTER M.D. Performed By: #### C BC, PTT, CMP, PT, LIPASE, TROP, BNP #### [address] Basophils/100 WBC (Bld) 0.4 % Normal . [facility] Comment on above: Performed By: #### C BC, PTT, CMP, PT, LIPASE, TROP, BNP #### [address] Eosinophils (Bld) [#/Vol] 0.1 10*3/uL Normal 0.0-0.45 [facility] Comment on above: Performed By: #### C BC, PTT, CMP, PT, LIPASE, TROP, BNP #### [address] Eosinophils/100 WBC (Bld) 1.1 % Normal . [facility] Comment on above: Performed By: #### C BC, PTT, CMP, PT, LIPASE, TROP, BNP #### [address] Erythrocyte distribution width (RBC) [Ratio] 13.2 % Normal 11.9-15.3 [facility] Comment on above: Performed By: #### C BC, PTT, CMP, PT, LIPASE, TROP, BNP #### [address] Hematocrit (Bld) [Volume fraction] 38.4 % Normal 34.0-46.4 [facility] Comment on above: Performed By: #### C BC, PTT, CMP, PT, LIPASE, TROP, BNP #### [address] Hemoglobin (Bld) [Mass/Vol] 13.0 g/dL Normal 11.8-15.4 [facility] Comment on above: Performed By: #### C BC, PTT, CMP, PT, LIPASE, TROP, BNP #### [address] Lymphocytes (Bld) [#/Vol] 1.0 10*3/uL Normal 1.00-4.8 [facility] Comment on above: Performed By: #### C BC, PTT, CMP, PT, LIPASE, TROP, BNP #### [address] Lymphocytes/100 WBC (Bld) 13.5 % Normal . [facility] Comment on above: Performed By: #### C BC, PTT, CMP, PT, LIPASE, TROP, BNP #### [address] MCH (RBC) [Entitic mass] 31.1 pg Normal 24.7-34.3 [facility] Comment on above: Performed By: #### C BC, PTT, CMP, PT, LIPASE, TROP, BNP #### [address] MCV (RBC) [Entitic vol] 92.2 fL Normal 80-100 [facility] Comment on above: Performed By: #### C BC, PTT, CMP, PT, LIPASE, TROP, BNP #### [address] Mean Corpuscular HGB Conc 33.7 g/dL Normal 32.0-35.0 [facility] Comment on above: Performed By: #### C BC, PTT, CMP, PT, LIPASE, TROP, BNP #### [place] [address] [place] Monocytes (Bld) [#/Vol] 0.5 10*3/uL Normal 0.0-0.8 [facility] Comment on above: Performed By: #### C BC, PTT, CMP, PT, LIPASE, TROP, BNP #### [address] Monocytes/100 WBC (Bld) 7.2 % Normal . [facility] Comment on above: Performed By: #### C BC, PTT, CMP, PT, LIPASE, TROP, BNP #### [address] Neutrophils (Bld) [#/Vol] 5.9 10*3/uL Normal 1.8-7.7 [facility] Comment on above: Performed By: #### C BC, PTT, CMP, PT, LIPASE, TROP, BNP #### [address] Neutrophils/100 WBC (Bld) 77.8 % Normal . [facility] Comment on above: Performed By: #### C BC, PTT, CMP, PT, LIPASE, TROP, BNP #### [place] [address] [place] Nucleated RBC/100 WBC (Bld) [Ratio] 0.2 % Normal 0-0.5 [facility] Comment on above: Performed By: #### C BC, PTT, CMP, PT, LIPASE, TROP, BNP #### [place] [address] [place] Platelet mean volume (Bld) [Entitic vol] 7.2 fL Normal 6.3-10.7 [facility] Comment on above: Performed By: #### C BC, PTT, CMP, PT, LIPASE, TROP, BNP #### [place] [address] [place] Platelets (Bld) [#/Vol] 228 10*3/uL Normal 150-450 [facility] Comment on above: Performed By: #### C BC, PTT, CMP, PT, LIPASE, TROP, BNP #### [address] RBC (Bld) [#/Vol] 4.17 10*6/uL Normal 3.60-5.00 [facility] Comment on above: Performed By: #### C BC, PTT, CMP, PT, LIPASE, TROP, BNP #### [address] WBC (Bld) [#/Vol] 7.6 10*3/uL Normal 4.5-11.0 [facility] Comment on above: Performed By: #### C BC, PTT, CMP, PT, LIPASE, TROP, BNP #### [address] A1C with Estimated Average G luon 06-16-2020 Glucose [Mass/Vol] 108 mg/dL Normal [facility] Comment on above: Result Comment: PERF ORMED BY: [place] [address] PATHOLOGIST FISHERY BIOLOGIST TERRIE TROTTER M.D. Performed By: #### C BC, PTT, CMP, PT, LIPASE, TROP, BNP #### [address] HbA1c (Bld) [Mass fraction] 5.4 % Normal 4.3-5.6 [facility] Comment on above: Result Comment: Incr eased risk for diabetes: 5.7 - 6.4 diabetes: >6.4 glycemic control for adults with diabetes: <7.0 Performed By: #### C BC, PTT, CMP, PT, LIPASE, TROP, BNP #### [address] B-Type Natriuretic Peptideon 06-16-2020 Natriuretic peptide B (Bld) [Mass/Vol] 190.0 pg/mL High 5-100 [facility] Comment on above: Order Comment: Comme nt May use AM labs Result Comment: PERF ORMED BY: [place] [address] PATHOLOGIST FISHERY BIOLOGIST TERRIE TROTTER M.D. Performed By: #### C BC, PTT, CMP, PT, LIPASE, TROP, BNP #### [address] Natriuretic peptide B (Bld) [Mass/Vol] 194.0 pg/mL High 5-100 [facility] Comment on above: Order Comment: IV st art, KEJ, 2231. Result Comment: PERF ORMED BY: [place] [address] PATHOLOGIST FISHERY BIOLOGIST TERRIE TROTTER M.D. Performed By: #### C BC, PTT, CMP, PT, LIPASE, TROP, BNP #### [address] Basic Metabolic Panelon 04-0 Calcium [Mass/Vol] 8.7 mg/dL Normal 8.2-10.2 [facility] Comment on above: Order Comment: IV st art, KEJ, 2231. Performed By: #### C BC, PTT, CMP, PT, LIPASE, TROP, BNP #### [address] Chloride [Moles/Vol] 104 mmol/L Normal 95-114 [facility] Comment on above: Order Comment: IV st art, KEJ, 2231. Performed By: #### C BC, PTT, CMP, PT, LIPASE, TROP, BNP #### [address] CO2 [Moles/Vol] 23.4 mmol/L Normal 22.0-30.0 [facility] Comment on above: Order Comment: IV st art, KEJ, 2231. Performed By: #### C BC, PTT, CMP, PT, LIPASE, TROP, BNP #### [address] Creatinine [Mass/Vol] 0.63 mg/dL Normal 0.44-1.03 [facility] Comment on above: Order Comment: IV st art, , 2231. Performed By: #### C BC, PTT, CMP, PT, LIPASE, TROP, BNP #### [facility] [address] Creatinine Clr Calc Pharmacy 59.73 [facility] Comment on above: Order Comment: IV st art, , 2231. Result Comment: PERF ORMED BY: [place] [address] PATHOLOGIST FISHERY BIOLOGIST TERRIE TROTTER M.D. Performed By: #### C BC, PTT, CMP, PT, LIPASE, TROP, BNP #### [address] Estimated GFR ( Odilia > 60 [facility] Comment on above: Order Comment: IV st art, , 2231. Result Comment: GFR estimated reference range: According to KDOQI guidelines, <60 ml/min/1.73m2 is sufficient to diagnose a patient with chronic kidney disease. Performed By: #### C BC, PTT, CMP, PT, LIPASE, TROP, BNP #### [address] Estimated GFR (Non- Am > 60 [facility] Comment on above: Order Comment: IV st art, 2231. Performed By: #### C BC, PTT, CMP, PT, LIPASE, TROP, BNP #### [address] Glucose [Mass/Vol] 131 mg/dL High 70-100 [facility] Comment on above: Order Comment: IV st art, , 2231. Result Comment: [place] Glucose Reference Range is dependent on time and content of last meal. Glucose of more than 200 mg/dL in a nonstressed, ambulatory subject supports the diagnosis of Diabetes Mellitus. ADA recommended reference range Performed By: #### C BC, PTT, CMP, PT, LIPASE, TROP, BNP #### [facility] [address] Potassium [Moles/Vol] 3.5 mmol/L Normal 3.5-5.1 [facility] Comment on above: Order Comment: IV st art, KEJ, 2231. Performed By: #### C BC, PTT, CMP, PT, LIPASE, TROP, BNP #### [facility] [address] [place] [id number] [facility] Sodium [Moles/Vol] 136 mmol/L Normal 136-146 [facility] Comment on above: Order Comment: IV st art, KEJ, 2231. Performed By: #### C BC, PTT, CMP, PT, LIPASE, TROP, BNP #### [facility] [address] Urea nitrogen [Mass/Vol] 8 mg/dL Low 9-23 [facility] Comment on above: Order Comment: IV st art, KEJ, 2231. Performed By: #### C BC, PTT, CMP, PT, LIPASE, TROP, BNP #### [facility] [address] COVID-19 FRon 06-16-2020 SARS-CoV-2 (COVID-19) RNA JARET+probe Ql (Unsp spec) Negative Normal Negative [facility] Comment on above: Order Comment: Healt hcare Worker?: N Result Comment: Refe rence: Negative Testing for SARS-CoV-2 by RT-PCR This test was developed and its performance characteristics determined by [employer] and validated at the [facility]. This test has not been FDA cleared [...] is terminated or revoked sooner. PERFORMED BY: [place], [place] [address] PATHOLOGIST FISHERY BIOLOGIST TERRIE TROTTER M.D. Performed By: #### C BC, PTT, CMP, PT, LIPASE, TROP, BNP #### [place] [id number] [facility] CT angio chest PE protocolon 06-16-2020 CT angio chest PE protocol [facility] Main [place] [address] [place] [address] CT Scan Report Signed Patient: Zoe Gonzalez MR#: [id number] : 1955 Acct:[id number] Age/Sex: 65 / F ADM Date: 06/15/20 Loc: Room: 6I1291-7 Type: ADM INOo Attending Dr: Gage Noland [...] Garza Jr., M.D.06/16/2020 4:04 PM Dictation Location: [place] [address] Transcribed By: [facility] 06/16/20 1604 Dictated By: Slava De La Garza Jr, MD 06/16/20 1548 Signed By: 06/16/20 1604 Normal [facility] Complete Blood Count Auto Di ffon 06-16-2020 Basophils (Bld) [#/Vol] 0.0 10*3/uL Normal 0.0-0.2 [facility] Comment on above: Order Comment: IV st art, KE, 2231. Result Comment: PERF ORMED BY: [place] [address] PATHOLOGIST FISHERY BIOLOGIST TERRIE TROTTER M.D. Performed By: #### C BC, PTT, CMP, PT, LIPASE, TROP, BNP #### [address] Basophils/100 WBC (Bld) 0.3 % Normal . [facility] Comment on above: Order Comment: IV st art, [id number]. Performed By: #### C BC, PTT, CMP, PT, LIPASE, TROP, BNP #### [address] Eosinophils (Bld) [#/Vol] 0.0 10*3/uL Normal 0.0-0.45 [facility] Comment on above: Order Comment: IV st art, KE, 2231. Performed By: #### C BC, PTT, CMP, PT, LIPASE, TROP, BNP #### [address] Eosinophils/100 WBC (Bld) 0.2 % Normal . [facility] Comment on above: Order Comment: IV st art, KE, 2231. Performed By: #### C BC, PTT, CMP, PT, LIPASE, TROP, BNP #### [address] Erythrocyte distribution width (RBC) [Ratio] 13.4 % Normal 11.9-15.3 [facility] Comment on above: Order Comment: IV st art, 2231. Performed By: #### C BC, PTT, CMP, PT, LIPASE, TROP, BNP #### [address] Hematocrit (Bld) [Volume fraction] 39.3 % Normal 34.0-46.4 [facility] Comment on above: Order Comment: IV st art, 2231. Performed By: #### C BC, PTT, CMP, PT, LIPASE, TROP, BNP #### [address] Hemoglobin (Bld) [Mass/Vol] 13.5 g/dL Normal 11.8-15.4 [facility] Comment on above: Order Comment: IV st art, 2231. Performed By: #### C BC, PTT, CMP, PT, LIPASE, TROP, BNP #### [address] Lymphocytes (Bld) [#/Vol] 1.0 10*3/uL Normal 1.00-4.8 [facility] Comment on above: Order Comment: IV st art, 2231. Performed By: #### C BC, PTT, CMP, PT, LIPASE, TROP, BNP #### [address] Lymphocytes/100 WBC (Bld) 9.6 % Normal . [facility] Comment on above: Order Comment: IV st art, 2231. Performed By: #### C BC, PTT, CMP, PT, LIPASE, TROP, BNP #### [address] MCH (RBC) [Entitic mass] 31.3 pg Normal 24.7-34.3 [facility] Comment on above: Order Comment: IV st art, [id number]. Performed By: #### C BC, PTT, CMP, PT, LIPASE, TROP, BNP #### [address] MCV (RBC) [Entitic vol] 90.8 fL Normal 80-100 [facility] Comment on above: Order Comment: IV st art, KE, 2231. Performed By: #### C BC, PTT, CMP, PT, LIPASE, TROP, BNP #### [facility] [address] Mean Corpuscular HGB Conc 34.5 g/dL Normal 32.0-35.0 [facility] Comment on above: Order Comment: IV st art, KE, 2231. Performed By: #### C BC, PTT, CMP, PT, LIPASE, TROP, BNP #### [address] Monocytes (Bld) [#/Vol] 0.9 10*3/uL High 0.0-0.8 [facility] Comment on above: Order Comment: IV st art, 2231. Performed By: #### C BC, PTT, CMP, PT, LIPASE, TROP, BNP #### [address] Monocytes/100 WBC (Bld) 8.4 % Normal . [facility] Comment on above: Order Comment: IV st art, 2231. Performed By: #### C BC, PTT, CMP, PT, LIPASE, TROP, BNP #### [address] Neutrophils (Bld) [#/Vol] 8.3 10*3/uL High 1.8-7.7 [facility] Comment on above: Order Comment: IV st art, , 2231. Performed By: #### C BC, PTT, CMP, PT, LIPASE, TROP, BNP #### [address] Neutrophils/100 WBC (Bld) 81.5 % Normal . [facility] Comment on above: Order Comment: IV st art, [id number]. Performed By: #### C BC, PTT, CMP, PT, LIPASE, TROP, BNP #### [place] [address] [place] Nucleated RBC/100 WBC (Bld) [Ratio] 0.0 % Normal 0-0.5 [facility] Comment on above: Order Comment: IV st art, 2231. Performed By: #### C BC, PTT, CMP, PT, LIPASE, TROP, BNP #### [address] Platelet mean volume (Bld) [Entitic vol] 7.6 fL Normal 6.3-10.7 [facility] Comment on above: Order Comment: IV st art, KE, 2231. Performed By: #### C BC, PTT, CMP, PT, LIPASE, TROP, BNP #### [address] Platelets (Bld) [#/Vol] 269 10*3/uL Normal 150-450 [facility] Comment on above: Order Comment: IV st art, 2231. Performed By: #### C BC, PTT, CMP, PT, LIPASE, TROP, BNP #### [address] RBC (Bld) [#/Vol] 4.33 10*6/uL Normal 3.60-5.00 [facility] Comment on above: Order Comment: IV st art, 2231. Performed By: #### C BC, PTT, CMP, PT, LIPASE, TROP, BNP #### [address] WBC (Bld) [#/Vol] 10.2 10*3/uL Normal 4.5-11.0 [facility] Comment on above: Order Comment: IV st art, 2231. Performed By: #### C BC, PTT, CMP, PT, LIPASE, TROP, BNP #### [address] D-Dimer High Sensitivityon 0 4- D-Dimer High Sensitivity 211 ng/mL Normal 0-243 [facility] Comment on above: Result Comment: The reference [...] patients due to co-morbid conditions. PERFORMED BY: [place] [address] PATHOLOGIST FISHERY BIOLOGIST TERRIE TROTTER M.D. Performed By: #### C BC, PTT, CMP, PT, LIPASE, TROP, BNP #### [address] D-Dimer High Sensitivity < 200 Normal 0-243 [facility] Comment on above: Order Comment: IV st art, KE, 2232. Result Comment: The reference range for [...] patients due to co-morbid conditions. PERFORMED BY: [place] [address] PATHOLOGIST FISHERY BIOLOGIST TERRIE TROTTER M.D. Performed By: #### C BC, PTT, CMP, PT, LIPASE, TROP, BNP #### [place] [id number] [facility] ECG 12 lead ECGon 06-16-2020 ECG 12 lead ECG [facility] Main [place] [address] [place] [id number] Electrocardiograph Report Signed Patient: Zoe Gonzalez MR#: [id number] 5029 : 1955 Acct:[id number] Age/Sex: 65 / F ADM Date: 06/15/20 Loc: 4N Room: [address] [place] [address] Type: ADM INOo Attending Dr: Gage Noland [...] Belle Teran MD 06/15/202205 Signed By: 06/17/[address] [place] [address] echo transthoracicon [facility] echo transthoracic [facility] Main [place] [address] [place] [address] Echocardiogram Signed Patient: Zoe Gonzalez MR#: [id number] : 1955 Acct:[id number] Age/Sex: 65 / F ADM Date: 06/15/20 Loc: 4N Room: [address] [place] [address] Type: ADM INOo Attending Dr: Gage Noland MD Ordering Provider: Hussain Culp DO Date of Service: 06/15/20 [facility] echo transthoracic: Chest Pain Copies to: DO Lokesh Hickman MD Weight: 141 lb Performed By: Stacey Zavala RDCS BSA: 1.7 m2 BP: 116/75 mmHg HR: [...] 06/16/20 0944 Signed By: 06/16/20 1226 Normal [facility] Lipid Panelon 06-16-2020 Cholesterol [Mass/Vol] 174 mg/dL Normal 140-200 [facility] Comment on above: Result Comment: Chol less than 200 mg/dl low risk Chol 201-239 mg/dl borderline risk Chol 240 mg/dl and greater high risk Performed By: #### C BC, PTT, CMP, PT, LIPASE, TROP, BNP #### [facility] [address] Cholesterol in HDL [Mass/Vol] 72 mg/dL Normal 35-85 [facility] Comment on above: Result Comment: HDL CHOL ATP-III CLASSIFICATION Cardiovascular Risk HDL > or equal to 60 mg/dL LOW HDL < 40 mg/dL HIGH Performed By: #### C BC, PTT, CMP, PT, LIPASE, TROP, BNP #### [facility] [address] Cholesterol.total /Cholesterol in HDL [Mass ratio] 2.4 {ratio} Normal <5.0 [facility] Comment on above: Result Comment: PERF ORMED BY: [place] [address] PATHOLOGIST FISHERY BIOLOGIST TERRIE TROTTER M.D. Performed By: #### C BC, PTT, CMP, PT, LIPASE, TROP, BNP #### [facility] [address] LDL Cholesterol,Calcu lated 92 mg/dL Normal 0-100 [facility] Comment on above: Result Comment: LDL ATP III CLASSIFICATION LDL less than 100 mg/dL Optimal LDL 100-129 mg/dL Near or above optimal LDL 130-159 mg/dL Borderline high LDL 160-189 mg/dL High LDL greater than 189 mg/dL Very high Performed By: #### C BC, PTT, CMP, PT, LIPASE, TROP, BNP #### [facility] [address] Triglyceride w/Reflex 49 mg/dL Normal 35-149 [facility] Comment on above: Result Comment: TRIG ATP III CLASSIFICATION TRIG less than 150 mg/dL Normal TRIG 150-199 mg/dL Borderline high TRIG 200-500 mg/dL High TRIG greater than 500 mg/dL Very high Standard traceable to the Center for Disease Conrtrol and Prevention (CDC) test method. Performed By: #### C BC, PTT, CMP, PT, LIPASE, TROP, BNP #### [facility] [address] VLDL CHOLESTEROL 9 mg/dL Normal [facility] Comment on above: Performed By: #### C BC, PTT, CMP, PT, LIPASE, TROP, BNP #### [address] Partial Thromboplastin Timeo n 06-16-2020 aPTT Coag (Bld) [Time] 30.2 s Normal 25.1-36.5 [facility] Comment on above: Order Comment: IV st art, KE, 2231. Performed By: #### C BC, PTT, CMP, PT, LIPASE, TROP, BNP #### [address] Prothrombin Time INRon 06-16 INR Coag (PPP) [Relative time] 1.1 {INR} Normal [facility] Comment on above: Order Comment: IV st art, 2231. Result Comment: INR Therapeutic Range A) [...] PTT, CMP, PT, LIPASE, TROP, BNP #### [address] PT Coag (PPP) [Time] 12.1 s Normal 9.0-12.9 [facility] Comment on above: Order Comment: IV st art, KE, 2231. Performed By: #### C BC, PTT, CMP, PT, LIPASE, TROP, BNP #### [address] Troponin I(TnI)on 06-16-2020 Troponin I.cardiac [Mass/Vol] ng/mL Normal 0-0.02 [facility] Comment on above: Order Comment: IV st art, [id number]. Result Comment: OBDULIO [place] Cut off value > or equal to 0.03 ng/mL in conjunction with clinical conditions of myocardial infarction. (www.escardio.org/guidelines) PERFORMED BY: [place] [address] PATHOLOGIST FISHERY BIOLOGIST TERRIE TROTTER M.D. Performed By: #### C BC, PTT, CMP, PT, LIPASE, TROP, BNP #### [address] B-Type Natriuretic Peptideon 06-15-2020 Natriuretic peptide B (Bld) [Mass/Vol] 68.0 pg/mL Normal 5-100 [facility] Comment on above: Result Comment: PERF ORMED BY: [place] [address] PATHOLOGIST FISHERY BIOLOGIST TERRIE TROTTER M.D. Performed By: #### C BC, PTT, CMP, PT, LIPASE, TROP, BNP #### [address] COVID-19 Antigenon COVID-19 Antigen Healthcare Worker?: N Edson Reference [...] its performance Edson Disclaimer characteristic determined by [employer] and Edson Disclaimer validated at [facility]. This Edson Disclaimer test has not been [...] is terminated or revoked sooner. PERFORMED BY: [facility] [place] [address] PATHOLOGIST FISHERY BIOLOGIST TERRIE TROTTER M.D. Normal [facility] Comment on above: Performed By: #### S BALJEET COVID-19 EDSON #### [address] Complete Blood Count Auto Di ffon 06-15-2020 Basophils (Bld) [#/Vol] 0.0 10*3/uL Normal 0.0-0.2 [facility] Comment on above: Result Comment: PERF ORMED BY: [place] [address] PATHOLOGIST FISHERY BIOLOGIST TERRIE TROTTER M.D. Performed By: #### C BC, PTT, CMP, PT, LIPASE, TROP, BNP #### [address] Basophils/100 WBC (Bld) 0.2 % Normal . [facility] Comment on above: Performed By: #### C BC, PTT, CMP, PT, LIPASE, TROP, BNP #### [address] Eosinophils (Bld) [#/Vol] 0.0 10*3/uL Normal 0.0-0.45 [facility] Comment on above: Performed By: #### C BC, PTT, CMP, PT, LIPASE, TROP, BNP #### [address] Eosinophils/100 WBC (Bld) 0.2 % Normal . [facility] Comment on above: Performed By: #### C BC, PTT, CMP, PT, LIPASE, TROP, BNP #### [address] Erythrocyte distribution width (RBC) [Ratio] 13.1 % Normal 11.9-15.3 [facility] Comment on above: Performed By: #### C BC, PTT, CMP, PT, LIPASE, TROP, BNP #### [address] Hematocrit (Bld) [Volume fraction] 41.6 % Normal 34.0-46.4 [facility] Comment on above: Performed By: #### C BC, PTT, CMP, PT, LIPASE, TROP, BNP #### [address] Hemoglobin (Bld) [Mass/Vol] 14.2 g/dL Normal 11.8-15.4 [facility] Comment on above: Performed By: #### C BC, PTT, CMP, PT, LIPASE, TROP, BNP #### [address] Lymphocytes (Bld) [#/Vol] 1.0 10*3/uL Normal 1.00-4.8 [facility] Comment on above: Performed By: #### C BC, PTT, CMP, PT, LIPASE, TROP, BNP #### [address] Lymphocytes/100 WBC (Bld) 11.4 % Normal . [facility] Comment on above: Performed By: #### C BC, PTT, CMP, PT, LIPASE, TROP, BNP #### [address] MCH (RBC) [Entitic mass] 31.0 pg Normal 24.7-34.3 [facility] Comment on above: Performed By: #### C BC, PTT, CMP, PT, LIPASE, TROP, BNP #### [address] MCV (RBC) [Entitic vol] 90.6 fL Normal 80-100 [facility] Comment on above: Performed By: #### C BC, PTT, CMP, PT, LIPASE, TROP, BNP #### [address] Mean Corpuscular HGB Conc 34.2 g/dL Normal 32.0-35.0 [facility] Comment on above: Performed By: #### C BC, PTT, CMP, PT, LIPASE, TROP, BNP #### [address] Monocytes (Bld) [#/Vol] 0.8 10*3/uL Normal 0.0-0.8 [facility] Comment on above: Performed By: #### C BC, PTT, CMP, PT, LIPASE, TROP, BNP #### [facility] [address] Monocytes/100 WBC (Bld) 9.5 % Normal . [facility] Comment on above: Performed By: #### C BC, PTT, CMP, PT, LIPASE, TROP, BNP #### [address] Neutrophils (Bld) [#/Vol] 7.0 10*3/uL Normal 1.8-7.7 [facility] Comment on above: Performed By: #### C BC, PTT, CMP, PT, LIPASE, TROP, BNP #### [facility] [address] Neutrophils/100 WBC (Bld) 78.7 % Normal . [facility] Comment on above: Performed By: #### C BC, PTT, CMP, PT, LIPASE, TROP, BNP #### [address] Nucleated RBC/100 WBC (Bld) [Ratio] 0.2 % Normal 0-0.5 [facility] Comment on above: Performed By: #### C BC, PTT, CMP, PT, LIPASE, TROP, BNP #### [facility] [address] Platelet mean volume (Bld) [Entitic vol] 7.2 fL Normal 6.3-10.7 [facility] Comment on above: Performed By: #### C BC, PTT, CMP, PT, LIPASE, TROP, BNP #### [facility] [address] Platelets (Bld) [#/Vol] 251 10*3/uL Normal 150-450 [facility] Comment on above: Performed By: #### C BC, PTT, CMP, PT, LIPASE, TROP, BNP #### [address] RBC (Bld) [#/Vol] 4.58 10*6/uL Normal 3.60-5.00 [facility] Comment on above: Performed By: #### C BC, PTT, CMP, PT, LIPASE, TROP, BNP #### [address] WBC (Bld) [#/Vol] 8.9 10*3/uL Normal 4.5-11.0 [facility] Comment on above: Performed By: #### C BC, PTT, CMP, PT, LIPASE, TROP, BNP #### [address] Comprehensive Metabolic Pane herson 06-15-2020 Albumin [Mass/Vol] 3.9 g/dL Normal 3.2-5.5 [facility] Comment on above: Performed By: #### C BC, PTT, CMP, PT, LIPASE, TROP, BNP #### [address] Albumin/Globulin [Mass ratio] 1.4 {ratio} Normal [facility] Comment on above: Performed By: #### C BC, PTT, CMP, PT, LIPASE, TROP, BNP #### [address] ALP [Catalytic activity/Vol] 47 U/L Normal 32-92 [facility] Comment on above: Performed By: #### C BC, PTT, CMP, PT, LIPASE, TROP, BNP #### [address] ALT [Catalytic activity/Vol] 21 U/L Normal 10-60 [facility] Comment on above: Performed By: #### C BC, PTT, CMP, PT, LIPASE, TROP, BNP #### [address] AST [Catalytic activity/Vol] 22 U/L Normal 10-42 [facility] Comment on above: Performed By: #### C BC, PTT, CMP, PT, LIPASE, TROP, BNP #### [address] Bilirubin [Mass/Vol] 0.7 mg/dL Normal 0.3-1.2 [facility] Comment on above: Performed By: #### C BC, PTT, CMP, PT, LIPASE, TROP, BNP #### [address] Calcium [Mass/Vol] 8.8 mg/dL Normal 8.2-10.2 [facility] Comment on above: Performed By: #### C BC, PTT, CMP, PT, LIPASE, TROP, BNP #### [address] Chloride [Moles/Vol] 103 mmol/L Normal 95-114 [facility] Comment on above: Performed By: #### C BC, PTT, CMP, PT, LIPASE, TROP, BNP #### [address] CO2 [Moles/Vol] 23.3 mmol/L Normal 22.0-30.0 [facility] Comment on above: Performed By: #### C BC, PTT, CMP, PT, LIPASE, TROP, BNP #### [address] Creatinine [Mass/Vol] 0.64 mg/dL Normal 0.44-1.03 [facility] Comment on above: Performed By: #### C BC, PTT, CMP, PT, LIPASE, TROP, BNP #### [address] Creatinine Clr Calc Pharmacy 59.73 [facility] Comment on above: Performed By: #### C BC, PTT, CMP, PT, LIPASE, TROP, BNP #### [address] Estimated GFR ( Odilia > 60 [facility] Comment on above: Result Comment: GFR estimated reference range: According to KDOQI guidelines, <60 ml/min/1.73m2 is sufficient to diagnose a patient with chronic kidney disease. Performed By: #### C BC, PTT, CMP, PT, LIPASE, TROP, BNP #### [address] Estimated GFR (Non- Am > 60 [facility] Comment on above: Performed By: #### C BC, PTT, CMP, PT, LIPASE, TROP, BNP #### [address] Globulin (S) [Mass/Vol] 2.7 g/dL Normal [facility] Comment on above: Performed By: #### C BC, PTT, CMP, PT, LIPASE, TROP, BNP #### [address] Glucose [Mass/Vol] 117 mg/dL High 70-100 [facility] Comment on above: Result Comment: [facility] Glucose Reference Range is dependent on time and content of last meal. Glucose of more than 200 mg/dL in a nonstressed, ambulatory subject supports the diagnosis of Diabetes Mellitus. ADA recommended reference range Performed By: #### C BC, PTT, CMP, PT, LIPASE, TROP, BNP #### [address] Potassium [Moles/Vol] 3.7 mmol/L Normal 3.5-5.1 [facility] Comment on above: Performed By: #### C BC, PTT, CMP, PT, LIPASE, TROP, BNP #### [address] Protein [Mass/Vol] 6.6 g/dL Normal 6.1-7.9 [facility] Comment on above: Performed By: #### C BC, PTT, CMP, PT, LIPASE, TROP, BNP #### [address] Sodium [Moles/Vol] 136 mmol/L Normal 136-146 [facility] Comment on above: Performed By: #### C BC, PTT, CMP, PT, LIPASE, TROP, BNP #### [address] Urea nitrogen [Mass/Vol] 10 mg/dL Normal 9-23 [facility] Comment on above: Performed By: #### C BC, PTT, CMP, PT, LIPASE, TROP, BNP #### [address] ECG 12 lead ECGon 06-15-2020 ECG 12 lead ECG [facility] Main [place] [address] [place] [address] Electrocardiograph Report Signed Patient: Zoe Gonzalez MR#: [id number] : 1955 Acct:[id number] Age/Sex: 65 / F ADM Date: 06/15/20 Loc: ER Room: Type: [facility] ER Attending Dr: Ordering Provider: Montrell [...] ECGs available Confirmed by Montrell Watson DO ([id number]) on 06/15/2020 8:30:21 AM Referred By: Electronically Signed By:Montrell Watson DO Transcribed By: MUS Dictated By: Montrell Watson DO 06/15/20 0750 Signed By: 06/15/20 0830 Normal [facility] Lipaseon 06-15-2020 Lipase [Catalytic activity/Vol] 35.0 U/L Normal 22-51 [facility] Comment on above: Result Comment: PERF ORMED BY: [address] [address] PATHOLOGIST FISHERY BIOLOGIST TERRIE TROTTER M.D. Performed By: #### C BC, PTT, CMP, PT, LIPASE, TROP, BNP #### [facility] [address] [place] [address] [place] Partial Thromboplastin Timeo n 06-15-2020 aPTT Coag (Bld) [Time] 29.4 s Normal 25.1-36.5 [facility] Comment on above: Result Comment: PERF ORMED BY: [address] [address] PATHOLOGIST FISHERY BIOLOGIST TERRIE TROTTER M.D. Performed By: #### C BC, PTT, CMP, PT, LIPASE, TROP, BNP #### [facility] [address] [place] [address] [place] Prothrombin Time INRon 06-15 INR Coag (PPP) [Relative time] 1.0 {INR} Normal [facility] Comment on above: Result Comment: INR Therapeutic [...] PTT, CMP, PT, LIPASE, TROP, BNP #### [facility] [address] PT Coag (PPP) [Time] 11.5 s Normal 9.0-12.9 [facility] Comment on above: Performed By: #### C BC, PTT, CMP, PT, LIPASE, TROP, BNP #### [facility] [address] Edson Ag Negativeon 06-16-19 21 Edson Ag Negative Negative Normal Negative [facility] Comment on above: Result Comment: This is a duplicate Edson SARS Antigen (LAKESHIA) result to be used for statistical tracking purpose only. PERFORMED BY: [place] [address] PATHOLOGIST FISHERY BIOLOGIST TERRIE TROTTER M.D. Performed By: #### S BALJEET COVID-19 EDSON #### [address] Troponin I(TnI)on 06-15-2020 Troponin I.cardiac [Mass/Vol] ng/mL Normal 0-0.02 [facility] Comment on above: Result Comment: OBDULIO [place] Cut off value > or equal to 0.03 ng/mL in conjunction with clinical conditions of myocardial infarction. (www.escardio.org/guidelines) PERFORMED BY: [place] [address] PATHOLOGIST FISHERY BIOLOGIST TERRIE TROTTER M.D. Performed By: #### C BC, PTT, CMP, PT, LIPASE, TROP, BNP #### [facility] [address] [place] [id number] [facility] XR chest 1V portableon 06-15 XR chest 1V portable [facility] Main [place] [address] [place] [address] XRay Report Signed Patient: Zoe Gonzalez MR#: [id number] : 1955 Acct:[id number] Age/Sex: 65 / F ADM Date: 06/15/20 Loc: ER Room: Type: [facility] ER Attending Dr: Ordering Provider: Montrell [...] Ben Borrero M.D.06/15/2020 9:06 AM Dictation Location: [place] [address] Transcribed By: [facility] 06/15/20905 Dictated By: Ben Borrero MD 06/15/20903 Signed By: 06/15/209[address] [facility] BN ANKLE, COMPLETE, MIN 3 EWSon 12-07-2017 [...] Electronically signed by: FANY JARRELL MD Normal [facility] BN KNEE; 1 OR 2 VIEWSon 11-15 BN KNEE; 1 OR 2 VIEWS Name: ZOE DAWSON STUDY:KNEE 1OR 2 VIEWS; 12/07/2017 3:59 pm INDICATION:Signs/Symptoms: ap/lat PAIN AFTER INJURY. COMPARISON:None ORDERING CLINICIAN:ARE WILSON FINDINGS:AP and lateral radiograph of the left knee are provided. Mild tricompartment productive degenerative changes are seen. Noradiographic evidence of acute fracture or dislocation. No sizableeffusion. Subtle remote fracture deformity of the proximal lefttibial shaft is noted. IMPRESSION:Mild tricompartment left knee arthrosis Electronically signed by: FANY JARRELL MD Normal [facility] Initial Visit (Orthopaedic S urgery)on 12-07-2017 Initial Visit (Orthopaedic Surgery) Chief Complaintpatient visit for left ankle evaluation History of Present IllnessChief complaint is left knee pain and some left hindfoot pain.This is a 62-year-old female who from [id number] I treated with a bone transport for an infected distal tibia. 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 She underwent a bone lengthening and fusion of the ankle and has done very well. 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 She's noticed that [...] her left knee. She was seen at [facility] in [facility] where x-rays were taken. She continues to [...] in 4-6 weeks Active Problems Ankle pain (719.47) (M25.579) Results/Data Xray Knee 1 or 2 [id number] 12:00AMSRae lewis[Dec 07, 2017 3:58PM Rae Wilson] Reason: Unspecified for Xray Knee 1 or 2 View Test NameResultFlagReferenceXray Knee 1 or 2 ViewPlease click on the link to view the study images Diagnoses/Problems Knee pain (719.46) (M25.569) Tibial plateau fracture, left, closed, initial encounter (823.00) (S82.386A) OrdersKnee pain Xray Knee 1 or 2 View; Status:Resulted - Preliminary,Retrospective Authorization; Done:07Dec2017 12:00AM Due:[id number];Ordered; For:Knee pain; Ordered By:Rae Wilson;Reason: Unspecified for Xray Knee 1 or 2 ViewLaterality : LeftRadiologist to Determine Optimal Study : YWhat are the patient's signs and symptoms? : ap/lat Signatures Electronically signed by : Rae Wilson MD; Dec 07 2017 4:42PM EST (Author) [facility] Vital Signs Date Time Vital Sign Value Performing Clinician Faci lity 04-27-2024 08:41-0500 Body height 160 cm Addie Bruner WHObyYOU Work Phone: [facility] [employer] 04-27-2024 08:41-0500 Body mass index (BMI) [Ratio] 24.8 kg/m2 Addie Bruner WHObyYOU Work Phone: [facility] [facility] 04-27-2024 08:41-0500 Body weight 63.5 kg Addie Bruner WHObyYOU Work Phone: [facility] [facility] 04-27-2024 08:41-0500 Diastolic blood pressure 80 mm[Hg] Addie Bruner DO Work Phone: [facility] [facility] 04-27-2024 08:41-0500 Heart rate 67 /min Addie Bruner WHObyYOU Work Phone: [facility] [facility] 04-27-2024 08:41-0500 SaO2% (BldA) [Mass fraction] 97 % Addie Bruner DO Work Phone: [facility] 04-27-2024 08:41-0500 Systolic blood pressure 142 mm[Hg] Addie Bruner DO Work Phone: [facility] 03-31-2024 15:40-0500 Body mass index (BMI) [Ratio] 24.45 kg/m2 Wilberto Quintero MICROCHIP SPECIALIST Work Phone: [facility] 03-31-2024 15:40-0500 Body weight 62.6 kg Wilberto Quintero MICROCHIP SPECIALIST Work Phone: [facility] 03-31-2024 15:40-0500 Diastolic blood pressure 80 mm[Hg] Wilberto Quintero MICROCHIP SPECIALIST Work Phone: [facility] 03-31-2024 15:40-0500 Heart rate 69 /min Wilberto Quintero MICROCHIP SPECIALIST Work Phone: [facility] 03-31-2024 15:40-0500 SaO2% (BldA) [Mass fraction] 97 % Wilberto Quintero MICROCHIP SPECIALIST Work Phone: [facility] 03-31-2024 15:40-0500 Systolic blood pressure 136 mm[Hg] Wilberto Quintero MICROCHIP SPECIALIST Work Phone: [facility] Healthcare Encounters Encounter Date Encounter Type Care Provider Facility Start: 05-23-2024 End: 05-24-2024 Refill [facility] Comment on above: Anxiety Start: 04-27-2024 End: 04-27-2024 ambulatory ADDIE BRUNER Not Available Start: 04-27-2024 End: 04-27-2024 Office outpatient visit 25 minutes Addie Bruner DO Work Phone: [facility] Comment on above: Encounter for subseq uent annual wellness visit (AWV) in Medicare patient (Primary Dx); ACP (advance care planning); Primary hypertension ([facility]); Irritable bowel syndrome with constipation; Gastroesophageal reflux disease without esophagitis; Primary insomnia; Osteopenia of multiple sites; Major depressive disorder, recurrent episode with anxious distress ([facility]); Elevated LDL cholesterol level ([facility]); SAM (generalized anxiety disorder) ([facility]) Start: 04-27-2024 End: 04-27-2024 Patient encounter procedure Addie Bruner DO Work Phone: [facility] Work Phone: Start: 04-25-2024 End: 04-26-2024 Orders Only Addie Bruner DO Work Phone: [facility] External Department Unsolicited Start: 04-08-2024 End: 04-08-2024 Refill Jann Contreras MA [facility] Comment on above: Anxiety Start: 03-31-2024 End: 03-31-2024 Office outpatient visit 15 minutes Wilberto Quintero MICROCHIP SPECIALIST Work Phone: [facility] Comment on above: Gastroesophageal ref lux disease without esophagitis (Primary Dx); Left ear pain; Contusion of scalp, initial encounter Start: 03-31-2024 End: 03-31-2024 ambulatory ADDIE BRUNER Not Available Start: 03-31-2024 End: 03-31-2024 Bamboo flowsheet Addie Bruner DO Work Phone: [facility] Start: 03-31-2024 End: 03-31-2024 Bamboo flowsheet Addie Bruner DO Work Phone: [facility] Start: 02-25-2024 End: 02-25-2024 Refill Jann Cotnreras MA [facility] Comment on above: Anxiety Start: 01-19-2024 End: 01-19-2024 Refill Catia Charlton LPN [facility] Comment on above: Anxiety Start: 12-04-2023 End: 12-04-2023 Refill Jann Contreras MA [facility] Comment on above: Anxiety Start: 10-21-2023 End: 10-21-2023 ambulatory ADDIE BRUNER Not Available Start: 09-02-2023 End: 09-02-2023 ambulatory ADDIE BRUNER Not Available Start: 08-27-2023 End: 08-27-2023 ambulatory MILADIS PAZ Not Available Start: 08-19-2023 End: 08-19-2023 ambulatory LAUREN PAZ Not Available Start: 08-12-2023 End: 08-12-2023 ambulatory LAUREN PAZ Not Available Start: 08-11-2023 End: 08-11-2023 ambulatory DEBBY CARREON Not Available Start: 07-21-2023 End: 07-21-2023 ambulatory LAUREN PAZ Not Available Start: 06-16-2023 End: 06-16-2023 ambulatory ADDIE Junior FRANC Not Available Start: 04-28-2023 Refill Jann Contreras MA [facility] Comment on above: Anxiety Start: 12-15-2022 End: 06-15-2023 Patient encounter procedure [facility]reras [facility] Start: 12-07-2017 Patient encounter procedure Rae arriaga [facility] Facility:[id number] Start: 12-07-2017 Patient encounter procedure Rae arriaga [facility] Facility:[facility] Procedures Date Procedure Procedure Detail Performing Clinician [...] foot Jann Contreras MA Start: 05-06-2022 Mammography Jann Contreras MA Start: 11-07-2020 Colonoscopy Jann Popalina SALVADOR Plan of Treatment Date Care Activity Detail Author Start: 11-07-2030 Screening for malign ant neoplasm of colon [facility] Start: 04-27-2025 Medicare Annual Well ness (AWV) Medicare Annual Wellness (AWV) [facility] Start: 10-26-2024 End: 10-26-2024 Patient encounter procedure 10/26/2024 9:00 AM EDT Office Visit [facility] [address] [place] [address] Addie Bruner, [address] [place] [address] [facility] Start: 09-20-2024 Pneumococcal Vaccine : 65+ Years (3 - PPSV23 or PCV20) Pneumococcal Vaccine: 65+ Years (3 - PPSV23 or PCV20) [facility] Start: 09-20-2024 Pneumococcal Vaccine : 65+ Years (3 of 3 - PPSV23 or PCV20) Pneumococcal Vaccine: 65+ Years (3 of 3 - PPSV23 or PCV20) [facility] Start: 09-01-2024 Screening for malign ant neoplasm of breast Mammogram [facility] Start: 08-09-2024 End: 08-09-2024 Patient encounter procedure 08/09/2024 1:00 PM EDT Office Visit [facility] DERM [address] [place] [phone] Debby Carreon, PLATFORM BUILDER-TEST ADMINISTRATOR [address] [place] [address] [facility] D[facility]M Start: 04-27-2024 End: 04-27-2024 Patient encounter procedure [facility] Comment on above: Encounter for subseq uent annual wellness visit (AWV) in Medicare patient (Primary Dx); ACP (advance care planning) Start: 03-31-2024 End: 03-31-2024 Patient encounter procedure 03/31/2024 3:30 PM EST Office Visit [facility] IM [address] [place] [address] Addie Bruner DO [address] [place] [address] Arrived [facility] Comment on above: Arrived Start: 12-16-2023 Medicare Annual Well ness (AWV) Medicare Annual Wellness (AWV) [facility] Start: 11-15-2023 Influenza vaccination Influenza Vacc ine (#1) [facility] Start: 08-11-2023 End: 08-11-2023 Patient encounter procedure 08/11/2023 1:05 PM EDT Office Visit [facility] [address] [place] [phone] Debby Carreon APRN-CNP [address] [place] [address] [facility] Start: 06-16-2023 End: 06-16-2023 Patient encounter procedure 06/16/2023 8:15 AM EDT Office Visit [facility] [address] [place] [phone] Addie Bruner DO [address] [place] [address] [facility] Start: 05-06-2023 Screening for malign ant neoplasm of breast Mammogram [facility] Start: 11-14-2022 Influenza vaccination Influenza Vacc ine (#1) [facility] Start: 1955 Medicare Annual Well ness (AWV) Medicare Annual Wellness (AWV) [facility] Start: 1955 Screening for malign ant neoplasm of colon [facility] Immunizations Immunization Date Immunization Notes Care Provider Fa [facility] 03-31-2024 Seasonal trivalent influenza vaccine, adjuvanted, preservative free Wilberto Quintero MICROCHIP SPECIALIST Work Phone: [facility] 04-10-2022 influenza, high dose seasonal, preservative-free [facility] 04-10-2022 influenza virus vacc ine, unspecified formulation [facility] 02-12-2021 influenza, high dose seasonal, preservative-free [facility] 01-25-2020 Seasonal trivalent influenza vaccine, adjuvanted, preservative free [facility] 01-02-2020 influenza, high dose seasonal, preservative-free [facility] 09-21-2019 pneumococcal conjuga te vaccine, 13 valent [facility] 03-16-2019 pneumococcal conjuga te vaccine, 13 valent [facility] 01-19-2019 influenza, injectabl e, madin rosalina canine kidney, preservative free [facility] 11-10-2018 [facility] 06-02-2018 zoster vaccine recombinant [facility] 03-16-2018 pneumococcal polysaccharide vaccine, 23 valent [facility] 12-10-2016 influenza, injectabl e, quadrivalent, preservative free [facility] 01-02-2016 influenza, injectabl e, quadrivalent, contains preservative [facility] 03-27-2014 influenza, seasonal, injectable, preservative free [facility] 03-27-2014 zoster vaccine, live [facility] Payers Date Payer Category Payer Medicare [employer] MEDICARE REPLACEMENT [id number] 2022-Present [address] [address] [place] [address] [id number] 2022 Medicare (Managed Care) [facility] MEDICARE [id number] 2022 Medicare [id number] 1954 Unknown [id number] [id number]. 2.356 1954 Unknown [id number] 2.16.840.1.215980.3.579. 2.356 1954 Unknown [id number] 2.16.840.1.028437.3.579. 2.9 1954 Unknown [id number] 2.16.840.1.334003.3.579. 2.1259 1954 Unknown [id number] 2.16.840.1.587360.3.579. 2.1259 1954 Unknown [id number] 2.16.840.1.084893.3.579. 2.1259 1954 Unknown [id number] 2.16.840.1.136779.3.579. 2.9 1954 Unknown [id number] 2.16.840.1.694284.3.579. 2.1258 1954 Unknown [id number] 2.16.840.1.370969.3.579. 2.125 1954 Unknown [id number] 2.16.840.1.422030.3.579. 2.9 1954 Unknown [id number] 2.16.840.1.969230.3.579. 2.9 1954 Unknown [id number] 2.16.840.1.142387.3.579. 2.9 1954 Unknown [id number] 2.16.840.1.143274.3.579. 2.9 1954 Unknown [id number] 2.16.840.1.344253.3.579. 2.1258 1954 Unknown [id number] 2.16.840.1.114835.3.579. 2.1258 Unknown [id number] Social History Date Type Detail Facility Start: 08-12-2022 Tobacco smoking status MAIS Never sm oked tobacco [facility] History [...] Sex Assigned At Not on file [facility] Clinical Notes 05-06-2022 to 05-24-2024 Telephone Encounter - Lacey Nunez NP - 05/24/2024 3:05 PM EDTTelephone Encounter - Lacey Nunez NP - 05/24/2024 3:05 PM EDTTelephone Encounter - Jann Contreras MA - 05/23/2024 10:45 AM EDT Note Date & Type Note Facility 05-24-2024 Telephone encounter Note OARRS reviewed with non concerns. E-scribed to pharmacy. [facility] 05-24-2024 Miscellaneous Notes OARRS reviewed with non concerns. E-scribed to pharmacy. Patient called requesting a refill of lorazepam to be sent to [facility]. documented in this encounter [facility] 05-23-2024 Telephone encounter Note Patient called requesting a refill of lorazepam to be sent to [facility]. [facility] 04-08-2024 Telephone encounter Note OARRS reviewed with non concerns. E-scribed to pharmacy. [facility] 04-08-2024 Miscellaneous Notes OARRS reviewed with non concerns. E-scribed to pharmacy. Patient called requesting a refill of lorazepam to be sent to [facility]. documented in this encounter [facility] 04-08-2024 Telephone encounter Note Patient called requesting a refill of lorazepam to be sent to [facility]. [facility] 03-31-2024 History of Presen t illness Narrative Images from the original note were not included. Zoe Gonzalez is a 69 y.o. 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 She has been using zhpn-xug-gghqmwo sinus medication from [facility]. She is advised to use a humidifier at home to add moisture to the air. If symptoms persist or worsen, she may take generic Benadryl, especially at night, as long as it does not cause excessive tiredness. 3. Medication management. A refill for Protonix will be sent to [facility] pharmacy. documented in this encounter [facility] 02-25-2024 Miscellaneous Notes My name's Eunice Dawson. My birthday's [birth year]. And I need a refill on my lorazepam. My phone number. [phone], thank you. -Copied from [facility] loaded documented in this encounter [facility] 02-25-2024 Telephone encounter Note My name's Eunice Dawson. My birthday's [birth year]. And I need a refill on my lorazepam. My phone number. [phone], thank you. -Copied from [facility] loaded [facility] 12-04-2023 Telephone encounter Note OARRS reviewed with non concerns. E-scribed to pharmacy. [facility] 12-04-2023 Miscellaneous Notes OARRS reviewed with non concerns. E-scribed to pharmacy. Patient called requesting a refill of lorazepam to be sent to [facility]. documented in this encounter [facility] 12-04-2023 Telephone encounter Note Patient called requesting a refill of lorazepam to be sent to [facility]. [facility] 04-28-2023 Miscellaneous Notes Patient called requesting a refill of ativan. Would like that sent to [facility]. documented in this encounter [facility] 04-28-2023 Telephone encounter Note Patient called requesting a refill of ativan. Would like that sent to [facility]. [facility] 05-06-2022 Note HISTORY: Bone densit y screening. [...] signed by Mitchell Walton on 05/07/2022 [id number] [facility] Director Trading Evaluation note Diagnosis Anxiety Anxiety state, unspecified [...] care planning) Other specified counseling Primary hypertension ([facility]) Unspecified essential hypertension Irritable bowel syndrome with constipation Irritable bowel syndrome Gastroesophageal reflux disease without esophagitis Esophageal reflux Primary insomnia Persistent disorder of initiating or maintaining sleep Osteopenia of multiple sites Major depressive disorder, recurrent episode with anxious distress (CMS/HCC) Elevated LDL cholesterol level (CMS/HCC) SAM (generalized anxiety disorder) (CMS/HCC) Generalized anxiety disorder [facility] Diagnosis Primary insomnia- Primary Persistent disorder of initiating or maintaining sleep Other chronic pain Major depressive disorder, recurrent episode with anxious distress (CMS/HCC) Anxiety Anxiety state, unspecified documented in this encounter [facility] Summary Purpose Family History No Family History Records FoundNo Family History Records FoundNo Family History Records FoundNo Family History Records FoundNo Family History Records Found Advance Directives Latest Code Status on File Code Status Date Activated Date Inactivated Comments Full Code 12/15/2022 8:42 AM Date Activated Date Inactivated Comments 12/15/2022 8:42 AM Additional Source Comments INFORMATION SOURCE (unrecogn ized section and content) DATE CREATED AUTHOR 01/05/2018 [employer] DATE CREATED AUTHOR AUTHOR'S ORGANIZ ATION 02/22/2018 [facility] DATE CREATED AUTHOR AUTHOR'S ORGANIZ ATION 05/08/2021 [facility] DATE CREATED AUTHOR AUTHOR'S ORGANIZ ATION 05/08/2022 [facility] Me dical Specialist DATE CREATED AUTHOR AUTHOR'S ORGANIZ ATION 04/29/2024 [facility] dical Specialists EPIC Reason for Visit [...] ankles. Medicare Annual Wellness Vis it Subsequent Reason Onset Date Comments Med Refill 05/23/2024 Care Teams (unrecognized sec tion and content) Census Taker Relationship Specialty Start Date End Date Addie Bruner DO PCP - General Internal Medicine 08/08/22 Census Taker Relationship Specialty Start Date End Date Addie Bruner DO [address] [place] [address] PCP - General Internal Medicine 08/08/22 Census Taker Relationship Specialty Start Date End Date Addie Bruner DO [address] [place] [address] PCP - General Internal Medicine 08/08/22 Census Taker Relationship Specialty Start Date End Date Addie Bruner DO [address] [place] [address] PCP - General Internal Medicine 08/08/22 Census Taker Relationship Specialty Start Date End Date Addie Bruner DO [address] [place] [address] PCP - General Internal Medicine 08/08/22 Census Taker Relationship Specialty Start Date End Date Addie Bruner DO [address] [place] [address] PCP - General Internal Medicine 08/08/22 Census Taker Relationship Specialty Start Date End Date Addie Bruner DO [address] [place] [address] PCP - General Internal Medicine 08/08/22 Census Taker Relationship Specialty Start Date End Date Addie Bruner DO [address] [place] [address] PCP - General Internal Medicine 08/08/22 Census Taker Relationship Specialty Start Date End Date Addie Bruner DO [address] [place] [address] PCP - General Internal Medicine 08/08/22 FOR [...] BE BASED ON THE PRIMARY CLINICAL RECORDS. [facility]. provides no warranty or guarantee of the accuracy or completeness of information in this document.
== END 2024-06-20 11:08 | disposition home or self-care (01) ==
LOC: EC 11:07
PROVIDERS: Family Provider Internal Medicine; Visit Provider Orthopaedic Surgery
DX: S52.592D Other fractures of lower end of left radius, subsequent encounter for closed fracture with routine healing (principal); S52.615D Nondisplaced fracture of left ulna styloid process, subsequent encounter for closed fracture with routine healing
CPT/HCPCS: 73110